=== PATIENT | male | born 1935 | race Caucasian/White ===

== ENCOUNTER 2019-05-17 12:28 | Inpatient (IN) | payer MEDICARE, BC ==
[2019-05-17] MEDS ORDERED: Baclofen 10 MG Tab PO ONE (12:52)
[2019-05-17] MEDS ORDERED: Ketorolac 60 MG/2 ML SDV IM ONE (12:53)
[2019-05-17] MEDS ORDERED: Acetaminophen/oxyCODONE 325-5 MG Tab PO ONE (12:53)
[2019-05-17] MEDS ORDERED: Albuterol/Ipratropium 3.0-0.5 MG/3 ML Neb Soln NEB ONE (13:08)
--- NOTE | 2019-05-17 13:08 | EDM.PDOC ---
ED HPI GENERAL MEDICAL PROBLEM - General Chief Complaint: Respiratory Problem Stated Complaint: HEART ISSUES [facility] Time Seen by Provider: 05/17/19 13:05 Source of Information: Reports: Patient History Limitations: Reports: No Limitations - History of Present Illness INITIAL COMMENTS - FREE TEXT/NARRATIVE: pt has had uincreased breathing difficulty for the past 2-3 days. Today his breathing was very noisy. He has not had a definite fever. He has not been coughing up sputum. He does have ankle swelling by nite time. He is a nonsmoker and quite when he was about 24. Onset: Gradual, Other (last few days. ) Duration: Hour(s): Location: Reports: Chest Associated Symptoms: Reports: Cough, Shortness of Breath right chest Pain Score (Numeric/FACES): 5 - Related Data Allergies Allergy/AdvReac Type Severity Reaction Status Date / Time No Known Allergies Allergy Verified 05/17/19 12:40 Home Meds: Home Meds Levothyroxine [Synthroid] 100 mcg PO DAILY 05/23/14 [History] Potassium Chloride [Klor-Con M20] 20 meq PO BID 05/23/14 [History] Warfarin [Coumadin] 1.25 - 2.5 mg PO DAILY 05/23/14 [History] Metoprolol Succinate 25 mg PO DAILY 05/17/19 [History] Triamcinolone Acetonide [Kenalog 0.1% Crm] 1 applic TOP TID PRN 05/17/19 [ History] Furosemide 20 mg PO DAILY 05/18/19 [History] amLODIPine Besylate [Amlodipine Besylate] 10 mg PO DAILY 05/18/19 [History] Past Medical History HEENT History: Reports: Epistaxis Cardiovascular History: Reports: Arrhythmia, High Cholesterol, Hypertension Neurological History: Reports: CVA Psychiatric History: Reports: Dementia Endocrine/Metabolic History: Reports: Hypothyroidism - Infectious Disease History Infectious Disease History: Reports: Measles Social & Family History - Tobacco Use Smoking Status *Q: Never Smoker ED ROS GENERAL - Review of Systems Review Of Systems: See Below Constitutional: Reports: No Symptoms HEENT: Reports: No Symptoms Respiratory: Reports: Shortness of Breath, Wheezing, Cough, Other (pt is not raising sputum. ) Cardiovascular: Reports: No Symptoms Endocrine: Reports: No Symptoms GI/Abdominal: Reports: No Symptoms : Reports: No Symptoms Musculoskeletal: Reports: No Symptoms Skin: Reports: No Symptoms ED EXAM, GENERAL - Physical Exam Exam: See Below Free Text/Narrative:: pt has had some increased sob for the past 3-4 days. He has alot of sweling in his ankles by the end of the day. When Ems arrived today his o2 sat was 88. His resp were 21 on arrival here and he was sating better after a neb. He has been very wheezy at times. He was very distressed today. Exam Limited By: No Limitations General Appearance: Alert, Anxious, Moderate Distress Ears: Normal TMs Nose: Normal Inspection Throat/Mouth: Normal Inspection Head: Atraumatic Neck: Normal Inspection Respiratory/Chest: Decreased Breath Sounds, Wheezing, Other ( resp rate of 21. ) Cardiovascular: Irregularly Irregular, Other (pt has a history of atrial fib. ) GI/Abdominal: Soft, Non-Tender (Male) Exam: Deferred Rectal (Males) Exam: Deferred Back Exam: Normal Inspection Extremities: Other ( trace edema present. ) Neurological: Alert, Oriented, Normal Cognition Psychiatric: Anxious Course - Vital Signs Last Recorded V/S: Last Vital Signs Temp 37.0 C 05/19/19 08:00 Pulse 63 05/19/19 08:32 Resp 18 05/19/19 08:00 BP 166/98 H 05/19/19 09:00 Pulse Ox 94 L 05/19/19 08:00 - Orders/Labs/Meds Orders: Medication Orders Acetaminophen (Tylenol) 650 mg PO Q4H PRN PRN Reason: Pain (Mild 1-3)/fever Albuterol (Proventil Neb Soln) 2.5 mg NEB Q4H PRN PRN Reason: Shortness Of Breath/wheezing Amlodipine Besylate (Norvasc) 10 mg PO DAILY [facility] Last Admin: 05/19/19 09:00 Dose: 10 mg Azithromycin (Zithromax) 500 mg PO DAILY [facility] Last Admin: 05/19/19 10:14 Dose: 500 mg Docusate Sodium (Colace) 100 mg PO BID [facility] Last Admin: 05/19/19 08:33 Dose: 100 mg Furosemide (Lasix) 20 mg PO DAILY [facility] Last Admin: 05/19/19 08:33 Dose: 20 mg Ceftriaxone Sodium 2 gm/ (Sodium Chloride) 50 mls @ 100 mls/hr IV Q24H [facility] Last Admin: 05/19/19 10:20 Dose: 100 mls/hr Levothyroxine Sodium (Synthroid) 100 mcg PO ACBREAKFAST [facility] Last Admin: 05/19/19 07:50 Dose: 100 mcg Admin: 05/18/19 09:00 Dose: 100 mcg Melatonin (Melatonin) 9 mg PO BEDTIME [facility] Last Admin: 05/18/19 20:22 Dose: 9 mg Admin: 05/17/19 20:49 Dose: 9 mg Metoprolol Succinate (Toprol Xl) 25 mg PO DAILY [facility] Last Admin: 05/19/19 08:32 Dose: 25 mg Admin: 05/18/19 09:00 Dose: 25 mg Ondansetron HCl (Zofran) 4 mg IV Q4H PRN PRN Reason: Nausea/Vomiting Oxycodone HCl (Oxycodone) 5 mg PO Q4H PRN PRN Reason: Pain (moderate 4-6) Last Admin: 05/19/19 07:53 Dose: 5 mg Admin: 05/18/19 20:22 Dose: 5 mg Polyethylene Glycol (Miralax) 17 gm PO DAILY PRN PRN Reason: Constipation Potassium Chloride (Klor-Con M20) 20 meq PO BID [facility] Last Admin: 05/19/19 08:32 Dose: 20 meq Admin: 05/18/19 20:22 Dose: 20 meq Admin: 05/18/19 09:00 Dose: 20 meq Sodium Chloride (Saline Flush) 10 ml FLUSH ASDIRECTED PRN PRN Reason: Keep Vein Open Warfarin Sodium (Coumadin) 2.5 mg PO ONETIME ONE Stop: 05/19/19 13:01 Labs: Laboratory Tests 05/17/19 05/17/19 05/17/19 Range/Units 13:03 13:03 13:03 WBC 6.3 (4.5-11.0) K/uL RBC 4.65 (4.30-5.90) M/uL Hgb 13.6 (12.0-15.0) g/dL Hct 40.1 (40.0-54.0) % MCV 86 (80-98) fL MCH 29 (27-31) pg MCHC 34 (32-36) % Plt Count 317 (150-400) K/uL Neut % (Auto) 59 (36-66) % Lymph % (Auto) 17 L (24-44) % Gilliam % (Auto) 16 H (2-6) % Eos % (Auto) 7 H (2-4) % Baso % (Auto) 1 (0-1) % PT (9.5-12.0) sec INR (0.80-1.20) Puncture Site ABG pH (7.350-7.450) ABG pCO2 (35.0-42.0) mmHg ABG pO2 (75.0-100.0) mmHg ABG HCO3 (22.0-26.0) mmol/L ABG Total CO2 (23.0-27.0) mmol/L ABG O2 Saturation (95.0-98.0) % ABG O2 Content (15.0-23.0) %vol ABG Base Excess mm/L ABG Hemoglobin (13.5-18.0) g/dL ABG Oxyhemoglobin % ABG Carboxyhemoglobin (0.0-1.6) % ABG Methemoglobin % Ochoa Test O2 Delivery Device Sodium 131 L (140-148) mmol/L Potassium 3.4 L (3.6-5.2) mmol/L Chloride 93 L (100-108) mmol/L Carbon Dioxide 23 (21-32) mmol/L Anion Gap 18.4 H (5.0-14.0) mmol/L BUN 12 D (7-18) mg/dL Creatinine 1.2 (0.8-1.3) mg/dL Est Cr Clr Drug Dosing 44.33 mL/min Estimated GFR (MDRD) 58 L (>60) Glucose 156 H (74-106) mg/dL Calcium 9.0 (8.5-10.1) mg/dL Total Bilirubin 0.6 D (0.2-1.0) mg/dL AST 21 (15-37) U/L ALT 24 (12-78) U/L Alkaline Phosphatase 153 H (46-116) U/L NT-Pro-B Natriuret Pep (5-450) pg/mL Total Protein 8.6 H (6.4-8.2) g/dL Albumin 3.4 (3.4-5.0) g/dL Globulin 5.2 H (2.3-3.5) g/dL Albumin/Globulin Ratio 0.7 L (1.2-2.2) TSH, Ultra Sensitive (0.358-3.740) uIU/mL Urine Color Yellow (YELLOW) Urine Appearance Slightly cloudy A (CLEAR) Urine pH 7.0 (5.0-8.0) Ur Specific [place] 1.020 (1.008-1.030) Urine Protein >=300 H (NEGATIVE) mg/dL Urine Glucose (UA) Negative (NEGATIVE) mg/dL Urine Ketones Negative (NEGATIVE) mg/dL Urine Occult Blood Trace-lysed H (NEGATIVE) Urine Nitrite Negative (NEGATIVE) Urine Bilirubin Negative (NEGATIVE) Urine Urobilinogen 0.2 (0.2-1.0) EU/dL Ur Leukocyte Esterase Small H (NEGATIVE) Urine RBC Not seen (0-5) Urine WBC 5-10 H (0-5) Ur Epithelial Cells Not seen Amorphous Sediment Moderate Urine Bacteria Not seen Urine Mucus Not seen 05/17/19 05/17/19 05/17/19 Range/Units 13:04 13:05 14:03 WBC (4.5-11.0) K/uL RBC (4.30-5.90) M/uL Hgb (12.0-15.0) g/dL Hct (40.0-54.0) % MCV (80-98) fL MCH (27-31) pg MCHC (32-36) % Plt Count (150-400) K/uL Neut % (Auto) (36-66) % Lymph % (Auto) (24-44) % Gilliam % (Auto) (2-6) % Eos % (Auto) (2-4) % Baso % (Auto) (0-1) % PT 44.8 H (9.5-12.0) sec INR 4.52 H* (0.80-1.20) Puncture Site Rt brachial ABG pH 7.467 H (7.350-7.450) ABG pCO2 34.5 L (35.0-42.0) mmHg ABG pO2 66.3 L (75.0-100.0) mmHg ABG HCO3 24.6 (22.0-26.0) mmol/L ABG Total CO2 21.4 L (23.0-27.0) mmol/L ABG O2 Saturation 94.0 L (95.0-98.0) % ABG O2 Content 18.0 (15.0-23.0) %vol ABG Base Excess 1.7 mm/L ABG Hemoglobin 13.9 (13.5-18.0) g/dL ABG Oxyhemoglobin 91.8 % ABG Carboxyhemoglobin 1.8 H (0.0-1.6) % ABG Methemoglobin 0.5 % Ochoa Test Not performed O2 Delivery Device Room air Sodium (140-148) mmol/L Potassium (3.6-5.2) mmol/L Chloride (100-108) mmol/L Carbon Dioxide (21-32) mmol/L Anion Gap (5.0-14.0) mmol/L BUN (7-18) mg/dL Creatinine (0.8-1.3) mg/dL Est Cr Clr Drug Dosing mL/min Estimated GFR (MDRD) (>60) Glucose (74-106) mg/dL Calcium (8.5-10.1) mg/dL Total Bilirubin (0.2-1.0) mg/dL AST (15-37) U/L ALT (12-78) U/L Alkaline Phosphatase (46-116) U/L NT-Pro-B Natriuret Pep 1609 H (5-450) pg/mL Total Protein (6.4-8.2) g/dL Albumin (3.4-5.0) g/dL Globulin (2.3-3.5) g/dL Albumin/Globulin Ratio (1.2-2.2) TSH, Ultra Sensitive (0.358-3.740) uIU/mL Urine Color (YELLOW) Urine Appearance (CLEAR) Urine pH (5.0-8.0) Ur Specific [place] (1.008-1.030) Urine Protein (NEGATIVE) mg/dL Urine Glucose (UA) (NEGATIVE) mg/dL Urine Ketones (NEGATIVE) mg/dL Urine Occult Blood (NEGATIVE) Urine Nitrite (NEGATIVE) Urine Bilirubin (NEGATIVE) Urine Urobilinogen (0.2-1.0) EU/dL Ur Leukocyte Esterase (NEGATIVE) Urine RBC (0-5) Urine WBC (0-5) Ur Epithelial Cells Amorphous Sediment Urine Bacteria Urine Mucus 05/17/19 Range/Units 14:09 WBC (4.5-11.0) K/uL RBC (4.30-5.90) M/uL Hgb (12.0-15.0) g/dL Hct (40.0-54.0) % MCV (80-98) fL MCH (27-31) pg MCHC (32-36) % Plt Count (150-400) K/uL Neut % (Auto) (36-66) % Lymph % (Auto) (24-44) % Gilliam % (Auto) (2-6) % Eos % (Auto) (2-4) % Baso % (Auto) (0-1) % PT (9.5-12.0) sec INR (0.80-1.20) Puncture Site ABG pH (7.350-7.450) ABG pCO2 (35.0-42.0) mmHg ABG pO2 (75.0-100.0) mmHg ABG HCO3 (22.0-26.0) mmol/L ABG Total CO2 (23.0-27.0) mmol/L ABG O2 Saturation (95.0-98.0) % ABG O2 Content (15.0-23.0) %vol ABG Base Excess mm/L ABG Hemoglobin (13.5-18.0) g/dL ABG Oxyhemoglobin % ABG Carboxyhemoglobin (0.0-1.6) % ABG Methemoglobin % Ochoa Test O2 Delivery Device Sodium (140-148) mmol/L Potassium (3.6-5.2) mmol/L Chloride (100-108) mmol/L Carbon Dioxide (21-32) mmol/L Anion Gap (5.0-14.0) mmol/L BUN (7-18) mg/dL Creatinine (0.8-1.3) mg/dL Est Cr Clr Drug Dosing mL/min Estimated GFR (MDRD) (>60) Glucose (74-106) mg/dL Calcium (8.5-10.1) mg/dL Total Bilirubin (0.2-1.0) mg/dL AST (15-37) U/L ALT (12-78) U/L Alkaline Phosphatase (46-116) U/L NT-Pro-B Natriuret Pep (5-450) pg/mL Total Protein (6.4-8.2) g/dL Albumin (3.4-5.0) g/dL Globulin (2.3-3.5) g/dL Albumin/Globulin Ratio (1.2-2.2) TSH, Ultra Sensitive 3.243 (0.358-3.740) uIU/mL Urine Color (YELLOW) Urine Appearance (CLEAR) Urine pH (5.0-8.0) Ur Specific [place] (1.008-1.030) Urine Protein (NEGATIVE) mg/dL Urine Glucose (UA) (NEGATIVE) mg/dL Urine Ketones (NEGATIVE) mg/dL Urine Occult Blood (NEGATIVE) Urine Nitrite (NEGATIVE) Urine Bilirubin (NEGATIVE) Urine Urobilinogen (0.2-1.0) EU/dL Ur Leukocyte Esterase (NEGATIVE) Urine RBC (0-5) Urine WBC (0-5) Ur Epithelial Cells Amorphous Sediment Urine Bacteria Urine Mucus Meds: Medications Generic Name Dose Route Start Last Admin Trade Name Freq PRN Reason Stop Dose Admin Acetaminophen 650 mg 05/17/19 16:45 Tylenol PO Q4H PRN Pain (Mild 1-3)/fever Albuterol 2.5 mg 05/17/19 16:45 Proventil Neb Soln NEB Q4H PRN Shortness Of Breath/wheezing Amlodipine Besylate 10 mg 05/19/19 09:00 05/19/19 09:00 Norvasc PO 10 mg DAILY MARIA EUGENIA Administration Azithromycin 500 mg 05/19/19 09:30 05/19/19 10:14 Zithromax PO 500 mg DAILY MARIA EUGENIA Administration Docusate Sodium 100 mg 05/19/19 09:00 05/19/19 08:33 Colace PO 100 mg BID MARIA EUGENIA Administration Furosemide 20 mg 05/19/19 09:00 05/19/19 08:33 Lasix PO 20 mg DAILY MARIA EUGENIA Administration Ceftriaxone Sodium 2 gm/ 50 mls @ 100 mls/hr 05/19/19 10:00 05/19/19 10:20 Sodium Chloride IV 100 mls/hr Q24H MARIA EUGENIA Administration Levothyroxine Sodium 100 mcg 05/18/19 07:30 05/19/19 07:50 Synthroid PO 100 mcg ACBREAKFAST MARIA EUGENIA Administration Melatonin 9 mg 05/17/19 21:00 05/18/19 20:22 Melatonin PO 9 mg BEDTIME MARIA EUGENIA Administration Metoprolol Succinate 25 mg 05/18/19 09:00 05/19/19 08:32 Toprol Xl PO 25 mg DAILY MARIA EUGENIA Administration Ondansetron HCl 4 mg 05/17/19 16:45 Zofran IV Q4H PRN Nausea/Vomiting Oxycodone HCl 5 mg 05/17/19 16:45 05/19/19 07:53 Oxycodone PO 5 mg Q4H PRN Administration Pain (moderate 4-6) Polyethylene Glycol 17 gm 05/17/19 16:45 Miralax PO DAILY PRN Constipation Potassium Chloride 20 meq 05/18/19 09:00 05/19/19 08:32 Klor-Con M20 PO 20 meq BID MARIA EUGENIA Administration Sodium Chloride 10 ml 05/17/19 16:45 Saline Flush FLUSH ASDIRECTED PRN Keep Vein Open Warfarin Sodium 2.5 mg 05/19/19 13:00 Coumadin PO 05/19/19 13:01 ONETIME ONE Discontinued Medications Generic Name Dose Route Start Last Admin Trade Name Freq PRN Reason Stop Dose Admin Albuterol/Ipratropium 3 ml 05/17/19 13:08 05/17/19 13:36 Duoneb 3.0-0.5 Mg/3 Ml NEB 05/17/19 13:09 3 ml ONETIME ONE Administration Amlodipine Besylate 5 mg 05/18/19 09:00 05/18/19 09:00 Norvasc PO 5 mg DAILY MARIA EUGENIA Administration Baclofen 10 mg 05/17/19 12:52 Lioresal PO 05/17/19 12:53 ONETIME ONE Bupivacaine HCl Confirm 05/18/19 06:39 05/18/19 08:02 Marcaine 0.5% Administered 05/18/19 06:40 5 ml Dose Administration 50 ml .ROUTE .STK-MED ONE Fentanyl Confirm 05/18/19 07:17 Sublimaze Administered 05/18/19 07:18 Dose 100 mcg .ROUTE .STK-MED ONE Furosemide 60 mg 05/17/19 13:51 05/17/19 14:03 Lasix IVPUSH 05/17/19 13:52 60 mg ONETIME ONE Administration Furosemide 40 mg 05/18/19 09:00 05/18/19 09:01 Lasix PO 40 mg DAILY MARIA EUGENIA Administration Phytonadione 1 mg/ Sodium 50.5 mls @ 100 mls/hr 05/17/19 15:30 05/17/19 16:06 Chloride IV 05/17/19 16:00 100 mls/hr ONETIME ONE Administration Sodium Chloride 1,000 mls @ 100 mls/hr 05/17/19 16:45 05/18/19 10:44 Normal Saline IV 100 mls/hr ASDIRECTED MARIA EUGENIA Administration Ketorolac Tromethamine 60 mg 05/17/19 12:53 Toradol IM 05/17/19 12:54 ONETIME ONE Lidocaine/Epinephrine Confirm 05/18/19 06:39 05/18/19 08:02 Xylocaine 1% With Epinephrine 1:100,000 Administered 05/18/19 06:40 5 ml Dose Administration 50 ml .ROUTE .STK-MED ONE Lisinopril 5 mg 05/18/19 09:00 05/18/19 09:00 Prinivil PO 5 mg DAILY MARIA EUGENIA Administration Midazolam HCl Confirm 05/18/19 07:17 Versed 1 Mg/Ml Administered 05/18/19 07:18 Dose 2 mg .ROUTE .STK-MED ONE Oxycodone/Acetaminophen 1 tab 05/17/19 12:53 Percocet 325-5 Mg PO 05/17/19 12:54 ONETIME ONE Potassium Chloride 40 meq 05/17/19 21:00 05/17/19 20:48 Klor-Con M20 PO 05/17/19 21:01 40 meq ONETIME ONE Administration Potassium Chloride 40 meq 05/17/19 16:45 05/17/19 17:24 Klor-Con M20 PO 05/17/19 16:46 40 meq ONETIME ONE Administration Potassium Chloride 40 meq 05/17/19 21:00 05/17/19 20:31 Klor-Con M20 PO 05/17/19 21:01 Not Given ONETIME ONE Potassium Chloride 40 meq 05/19/19 09:30 05/19/19 10:17 Klor-Con M20 PO 05/19/19 09:31 40 meq ONETIME ONE Administration Propofol Confirm 05/18/19 07:17 Diprivan 20 Ml Administered 05/18/19 07:18 Dose 200 mg .ROUTE .STK-MED ONE - Re-Assessments/Exams Free Text/Narrative Re-Assessment/Exam: 05/17/19 14:09 bnp is elevated, chest xray looks quite wet, there are no effusions. 05/19/19 10:46 In looking closer at the chest xray there was a possibility of a pneumothorax. A cat scan of the chest showed a 30 % pneumothorax presnt. The pt was stable. His Inr is greater than 4. 05/19/19 10:52 Dr Beltrán was contacted. With the pt stable and his INR greater than 4 he choose to do the chest tube the next day. Departure - Departure Time of Disposition: 14:10 Disposition: Admitted As Inpatient 65 Condition: Fair Clinical Impression: CHF (congestive heart failure), Atrial fibrillation, Pneumothorax on right - Discharge Information Sepsis Event Note - Evaluation Sepsis Screening Result: No Definite Risk - Focused Exam Date Exam was Performed: 05/19/19 Time Exam was Performed: 10:54
[2019-05-17] MEDS ORDERED: Furosemide 40 MG/4 ML VIAL IVPUSH ONE (13:51)
--- NOTE | 2019-05-17 15:24 | PCM.HP.2 ---
H&P History of Present Illness - General Date of Service: 05/17/19 Admit Problem/Dx: Admission Diagnosis/Problem Admission Diagnosis/Problem Pneumothorax on right Source of Information: Patient, Provider, RN Notes Reviewed History Limitations: Reports: Altered Mental Status (Dementia) - History of Present Illness Initial Comments - Free Text/Narative: Mr. Hernandez is an 83-year-old gentleman who was admitted through the emergency department with shortness of breath secondary to pneumothorax of the right lung. He does have a history of underlying dementia and is somewhat unclear concerning recent symptoms, duration of symptoms, review of systems. He thinks that symptoms came on 2 days ago but is unable to recall if they started abruptly and currently denies any symptoms of chest pain or pressure. Not think he has had fevers, chills, sweats, or cough. White blood cell count is within normal range. Chest x-ray shows evidence of a right pneumothorax. CT scan of the chest was obtained and also documents right lung pneumothorax, 30 to 40%. He is on long-term oral anticoagulation with warfarin, INR is elevated at 4.5. - Related Data Allergies/Adverse Reactions: Allergies Allergy/AdvReac Type Severity Reaction Status Date / Time No Known Allergies Allergy Verified 05/17/19 12:40 Home Medications: Home Meds Furosemide [Lasix] 40 mg PO DAILY 05/23/14 [History] Levothyroxine [Synthroid] 100 mcg PO DAILY 05/23/14 [History] Lisinopril 5 mg PO DAILY 05/23/14 [History] Potassium Chloride [Klor-Con M20] 20 meq PO BID 05/23/14 [History] Warfarin [Coumadin] 1.25 - 2.5 mg PO DAILY 05/23/14 [History] amLODIPine [Norvasc] 5 mg PO DAILY 05/23/14 [History] Metoprolol Succinate 1 tab PO DAILY 05/17/19 [History] Triamcinolone Acetonide [Kenalog 0.1% Crm] 1 applic TOP TID PRN 05/17/19 [ History] Past Medical History HEENT History: Reports: Epistaxis Cardiovascular History: Reports: Arrhythmia, High Cholesterol, Hypertension Neurological History: Reports: CVA Psychiatric History: Reports: Dementia Endocrine/Metabolic History: Reports: Hypothyroidism - Infectious Disease History Infectious Disease History: Reports: Measles Social & Family History - Tobacco Use Smoking Status *Q: Never Smoker H&P Review of Systems - Review of Systems: Review Of Systems: See Below General: Reports: No Symptoms HEENT: Reports: No Symptoms Pulmonary: Reports: Shortness of Breath. Denies: Wheezing, Pleuritic Chest Pain , Cough, Sputum, Hemoptysis Cardiovascular: Reports: Dyspnea on Exertion, Edema. Denies: Chest Pain, Palpitations, Orthopnea, PND, Lightheadedness Gastrointestinal: Reports: No Symptoms Genitourinary: Reports: No Symptoms Musculoskeletal: Reports: No Symptoms Skin: Reports: No Symptoms Psychiatric: Reports: No Symptoms Neurological: Reports: No Symptoms Hematologic/Lymphatic: Reports: No Symptoms Immunologic: Reports: No Symptoms Exam - Exam Exam: See Below - Vital Signs Vital Signs: Last Vital Signs Temp 95.6 F L 05/17/19 12:49 Pulse 81 05/17/19 14:50 Resp 21 H 05/17/19 12:37 BP 177/72 H 05/17/19 14:50 Pulse Ox 99 05/17/19 14:50 Weight: 161 lb - Exam Quality Assessment: DVT Prophylaxis General: Alert, Cooperative, Mild Distress. No: Oriented HEENT: Conjunctiva Clear, Mucosa Moist & [place], Normal Nasal Septum, Posterior Pharynx Clear, Pupils Equal. No: Hearing Intact Neck: Supple, Trachea Midline, +2 Carotid Pulse wo Bruit Lungs: Decreased Breath Sounds (Right lung field). No: Crackles, Rales, Rhonchi , Rub, Wheezing Cardiovascular: Regular Rate, Regular Rhythm, Normal S1, Normal S2. No: Systolic Murmur, Diastolic Murmur GI/Abdominal Exam: Soft, Non-Tender, No Organomegaly, No Distention Back Exam: Normal Inspection, Full Range of Motion Extremities: Non-Tender, Pedal Edema Skin: Warm, Dry, Intact Neurological: Cranial Nerves Intact, Strength Equal Bilateral, Normal Speech, Normal Tone, Sensation Intact. No: Focal Deficit Neuro Extensive - Mental Status: Alert, Oriented x3, Normal Mood/Affect, Normal Cognition, Memory Intact - Patient Data Lab Results Last 24 hrs: Laboratory Results - last 24 hr 05/17/19 05/17/19 05/17/19 Range/Units 13:03 13:03 13:03 WBC 6.3 (4.5-11.0) K/uL RBC 4.65 (4.30-5.90) M/uL Hgb 13.6 (12.0-15.0) g/dL Hct 40.1 (40.0-54.0) % MCV 86 (80-98) fL MCH 29 (27-31) pg MCHC 34 (32-36) % Plt Count 317 (150-400) K/uL Neut % (Auto) 59 (36-66) % Lymph % (Auto) 17 L (24-44) % [place] % (Auto) 16 H (2-6) % Eos % (Auto) 7 H (2-4) % Baso % (Auto) 1 (0-1) % PT (9.5-12.0) sec INR (0.80-1.20) Puncture Site ABG pH (7.350-7.450) ABG pCO2 (35.0-42.0) mmHg ABG pO2 (75.0-100.0) mmHg ABG HCO3 (22.0-26.0) mmol/L ABG Total CO2 (23.0-27.0) mmol/L ABG O2 Saturation (95.0-98.0) % ABG O2 Content (15.0-23.0) %vol ABG Base Excess mm/L ABG Hemoglobin (13.5-18.0) g/dL ABG Oxyhemoglobin % ABG Carboxyhemoglobin (0.0-1.6) % ABG Methemoglobin % Ochoa Test O2 Delivery Device Sodium 131 L (140-148) mmol/L Potassium 3.4 L (3.6-5.2) mmol/L Chloride 93 L (100-108) mmol/L Carbon Dioxide 23 (21-32) mmol/L Anion Gap 18.4 H (5.0-14.0) mmol/L BUN 12 D (7-18) mg/dL Creatinine 1.2 (0.8-1.3) mg/dL Est Cr Clr Drug Dosing 44.33 mL/min Estimated GFR (MDRD) 58 L (>60) Glucose 156 H (74-106) mg/dL Calcium 9.0 (8.5-10.1) mg/dL Total Bilirubin 0.6 D (0.2-1.0) mg/dL AST 21 (15-37) U/L ALT 24 (12-78) U/L Alkaline Phosphatase 153 H (46-116) U/L NT-Pro-B Natriuret Pep (5-450) pg/mL Total Protein 8.6 H (6.4-8.2) g/dL Albumin 3.4 (3.4-5.0) g/dL Globulin 5.2 H (2.3-3.5) g/dL Albumin/Globulin Ratio 0.7 L (1.2-2.2) TSH, Ultra Sensitive (0.358-3.740) uIU/mL Urine Color Yellow (YELLOW) Urine Appearance Slightly cloudy A (CLEAR) Urine pH 7.0 (5.0-8.0) Ur Specific [place] 1.020 (1.008-1.030) Urine Protein >=300 H (NEGATIVE) mg/dL Urine Glucose (UA) Negative (NEGATIVE) mg/dL Urine Ketones Negative (NEGATIVE) mg/dL Urine Occult Blood Trace-lysed H (NEGATIVE) Urine Nitrite Negative (NEGATIVE) Urine Bilirubin Negative (NEGATIVE) Urine Urobilinogen 0.2 (0.2-1.0) EU/dL Ur Leukocyte Esterase Small H (NEGATIVE) Urine RBC Not seen (0-5) Urine WBC 5-10 H (0-5) Ur Epithelial Cells Not seen Amorphous Sediment Moderate Urine Bacteria Not seen Urine Mucus Not seen 05/17/19 05/17/19 05/17/19 Range/Units 13:04 13:05 14:03 WBC (4.5-11.0) K/uL RBC (4.30-5.90) M/uL Hgb (12.0-15.0) g/dL Hct (40.0-54.0) % MCV (80-98) fL MCH (27-31) pg MCHC (32-36) % Plt Count (150-400) K/uL Neut % (Auto) (36-66) % Lymph % (Auto) (24-44) % [place] % (Auto) (2-6) % Eos % (Auto) (2-4) % Baso % (Auto) (0-1) % PT 44.8 H (9.5-12.0) sec INR 4.52 H* (0.80-1.20) Puncture Site Rt brachial ABG pH 7.467 H (7.350-7.450) ABG pCO2 34.5 L (35.0-42.0) mmHg ABG pO2 66.3 L (75.0-100.0) mmHg ABG HCO3 24.6 (22.0-26.0) mmol/L ABG Total CO2 21.4 L (23.0-27.0) mmol/L ABG O2 Saturation 94.0 L (95.0-98.0) % ABG O2 Content 18.0 (15.0-23.0) %vol ABG Base Excess 1.7 mm/L ABG Hemoglobin 13.9 (13.5-18.0) g/dL ABG Oxyhemoglobin 91.8 % ABG Carboxyhemoglobin 1.8 H (0.0-1.6) % ABG Methemoglobin 0.5 % Ochoa Test Not performed O2 Delivery Device Room air Sodium (140-148) mmol/L Potassium (3.6-5.2) mmol/L Chloride (100-108) mmol/L Carbon Dioxide (21-32) mmol/L Anion Gap (5.0-14.0) mmol/L BUN (7-18) mg/dL Creatinine (0.8-1.3) mg/dL Est Cr Clr Drug Dosing mL/min Estimated GFR (MDRD) (>60) Glucose (74-106) mg/dL Calcium (8.5-10.1) mg/dL Total Bilirubin (0.2-1.0) mg/dL AST (15-37) U/L ALT (12-78) U/L Alkaline Phosphatase (46-116) U/L NT-Pro-B Natriuret Pep 1609 H (5-450) pg/mL Total Protein (6.4-8.2) g/dL Albumin (3.4-5.0) g/dL Globulin (2.3-3.5) g/dL Albumin/Globulin Ratio (1.2-2.2) TSH, Ultra Sensitive (0.358-3.740) uIU/mL Urine Color (YELLOW) Urine Appearance (CLEAR) Urine pH (5.0-8.0) Ur Specific [place] (1.008-1.030) Urine Protein (NEGATIVE) mg/dL Urine Glucose (UA) (NEGATIVE) mg/dL Urine Ketones (NEGATIVE) mg/dL Urine Occult Blood (NEGATIVE) Urine Nitrite (NEGATIVE) Urine Bilirubin (NEGATIVE) Urine Urobilinogen (0.2-1.0) EU/dL Ur Leukocyte Esterase (NEGATIVE) Urine RBC (0-5) Urine WBC (0-5) Ur Epithelial Cells Amorphous Sediment Urine Bacteria Urine Mucus 05/17/19 Range/Units 14:09 WBC (4.5-11.0) K/uL RBC (4.30-5.90) M/uL Hgb (12.0-15.0) g/dL Hct (40.0-54.0) % MCV (80-98) fL MCH (27-31) pg MCHC (32-36) % Plt Count (150-400) K/uL Neut % (Auto) (36-66) % Lymph % (Auto) (24-44) % [place] % (Auto) (2-6) % Eos % (Auto) (2-4) % Baso % (Auto) (0-1) % PT (9.5-12.0) sec INR (0.80-1.20) Puncture Site ABG pH (7.350-7.450) ABG pCO2 (35.0-42.0) mmHg ABG pO2 (75.0-100.0) mmHg ABG HCO3 (22.0-26.0) mmol/L ABG Total CO2 (23.0-27.0) mmol/L ABG O2 Saturation (95.0-98.0) % ABG O2 Content (15.0-23.0) %vol ABG Base Excess mm/L ABG Hemoglobin (13.5-18.0) g/dL ABG Oxyhemoglobin % ABG Carboxyhemoglobin (0.0-1.6) % ABG Methemoglobin % Ochoa Test O2 Delivery Device Sodium (140-148) mmol/L Potassium (3.6-5.2) mmol/L Chloride (100-108) mmol/L Carbon Dioxide (21-32) mmol/L Anion Gap (5.0-14.0) mmol/L BUN (7-18) mg/dL Creatinine (0.8-1.3) mg/dL Est Cr Clr Drug Dosing mL/min Estimated GFR (MDRD) (>60) Glucose (74-106) mg/dL Calcium (8.5-10.1) mg/dL Total Bilirubin (0.2-1.0) mg/dL AST (15-37) U/L ALT (12-78) U/L Alkaline Phosphatase (46-116) U/L NT-Pro-B Natriuret Pep (5-450) pg/mL Total Protein (6.4-8.2) g/dL Albumin (3.4-5.0) g/dL Globulin (2.3-3.5) g/dL Albumin/Globulin Ratio (1.2-2.2) TSH, Ultra Sensitive 3.243 (0.358-3.740) uIU/mL Urine Color (YELLOW) Urine Appearance (CLEAR) Urine pH (5.0-8.0) Ur Specific [place] (1.008-1.030) Urine Protein (NEGATIVE) mg/dL Urine Glucose (UA) (NEGATIVE) mg/dL Urine Ketones (NEGATIVE) mg/dL Urine Occult Blood (NEGATIVE) Urine Nitrite (NEGATIVE) Urine Bilirubin (NEGATIVE) Urine Urobilinogen (0.2-1.0) EU/dL Ur Leukocyte Esterase (NEGATIVE) Urine RBC (0-5) Urine WBC (0-5) Ur Epithelial Cells Amorphous Sediment Urine Bacteria Urine Mucus Result Diagrams: 05/17/19 13:03 05/17/19 13:03 Sepsis Event Note - Evaluation Sepsis Screening Result: No Definite Risk - Focused Exam Vital Signs: Vital Signs Temp Pulse Pulse Resp BP BP Pulse Ox 05/17/19 14:50 81 177/72 H 99 05/17/19 13:36 70 05/17/19 12:49 95.6 F L 79 163/79 H 05/17/19 12:37 96.0 F L 79 21 H 151/83 H 95 Pulse Ox 05/17/19 14:50 05/17/19 13:36 97 05/17/19 12:49 05/17/19 12:37 Date Exam was Performed: 05/17/19 Time Exam was Performed: 16:10 *Q Meaningful Use (ADM) - VTE *Q VTE Pharmacological Contraindications *Q: High INR Value - VTE Risk Assess *Q Each Risk Factor Represents 1 Point: Swollen Legs, Current Total Score 1 Point Risk Factors: 1 Each Risk Factor Represents 2 Points: None Total Score 2 Point Risk Factors: 0 Each Risk Factor Represents 3 Points: Age 75 Years or Greater Total Score 3 Point Risk Factors: 3 Each Risk Factor Represents 5 Points: None Total Score 5 Point Risk Factors: 0 Venous Thromboembolism Risk Factor Score *Q: 4 Problem List Initiated/Reviewed/Updated: Yes Orders Last 24hrs: Active Orders 24 hr Category Date Time Status Patient Status Manage Transfer [TRANSFER] Routine ADT 05/17/19 15:04 Active EKG Documentation Completion [RC] ASDIRECTED Care 05/17/19 14:01 Active RT Aerosol Therapy [RC] ASDIRECTED Care 05/17/19 13:08 Active Chest 1V Frontal [CR] Stat Exams 05/17/19 13:04 Taken Chest wo Cont [CT] Stat Exams 05/17/19 14:49 Ordered Phytonadione [AquaMephyton] 1 mg Med 05/17/19 15:18 Ordered Sodium Chloride 0.9% [Normal Saline] 50 ml IV ONETIME Resuscitation Status Routine Resus Stat 05/17/19 15:08 Ordered EKG 12 Lead [EK] Routine Ther 05/17/19 14:01 Ordered Medication Orders Phytonadione 1 mg/ Sodium (Chloride) 50.5 mls @ 100 mls/hr IV ONETIME ONE Stop: 05/17/19 15:48 Assessment/Plan Comment:: ASSESSMENT AND PLAN RIGHT PNEUMOTHORAX-apparently a spontaneous pneumothorax, no history of trauma. Documented on chest x-ray as well as CT scan. No history of significant underlying lung disease, denies previous diagnosis of COPD. Currently is hemodynamically stable as well as stable from a respiratory standpoint. Oxygen saturations are adequate on room air. Dr. Beltrán has been contacted and he is concerned about the elevated INR. Vitamin K will be given and he will be monitored in the ICU overnight with plan for chest tube placement in a.m. if he remains stable. -Monitor in ICU -Daily chest x-rays -Supplemental oxygen if needed -Reverse anticoagulation with IV vitamin K -Consult Dr. Beltrán, plan for chest tube in the a.m. ELEVATED INR-on long-term oral anticoagulation with warfarin -Hold warfarin -Vitamin K 1 mg IV now -Recheck INR in a.m. HYPERTENSION -Continue outpatient medications DEMENTIA-history of cognitive impairment which is also apparent on evaluation -Melatonin 9 mg p.o. nightly MAINTENANCE ISSUES -DVT prophylaxis; current therapy with warfarin should provide adequate DVT prophylaxis -GI prophylaxis; not indicated -Powers catheter; not indicated -Nutrition; 2 g sodium diet -Nicotine dependence; not required CODE STATUS-FULL CODE ADMISSION STATUS-patient will be admitted to inpatient status, expect at least a 2 night hospital stay for evaluation and management of problems as outlined above. At the time of this admission I do not reasonably expected evaluation and management of this problem will require more than a 96 hour hospital stay. DISPOSITION-anticipate discharge to home after the hospital stay. PRIMARY CARE PROVIDER-Logan Odonnell - Mortality Measure Prognosis:: Good
[2019-05-17] MEDS ORDERED: Phytonadione 1 MG in Sodium Chloride 0.9% 50 ML IV ONE (15:30)
--- NOTE | 2019-05-17 16:31 | CRLCT ---
Indication: Possible small pneumothorax. Technique: Multiple contiguous axial images were obtained from the thoracic inlet through the upper abdomen without intravenous contrast enhancement. Please note that all CT scans at this facility use dose modulation, iterative reconstruction, and/or weight-based dosing when appropriate to reduce radiation dose to as low as reasonably achievable. Comparison: Chest x-ray from earlier today. Findings: Vascular calcifications are identified. [place] mediastinal lymph nodes are identified. The aorta is normal in caliber. Coronary artery calcifications are identified. The heart is borderline in size. No pericardial effusions identified. Small hiatal hernia is identified. The unenhanced visualized portions of the spleen, pancreas, gallbladder, adrenals, and kidneys are grossly normal. Degenerative changes of the spine are identified. No lytic or blastic lesions are identified. A moderate sized right pneumothorax is identified. Patchy areas of ground-glass opacity are identified bilaterally, greatest in the left upper lobe. A small right pleural effusion is identified. A probable right lower lobe infiltrate is identified. Impression: Moderate right hydro pneumothorax. Probable right lower lobe infiltrate. Patchy ground-glass opacities identified n the left, predominantly in the upper lobe, nonspecific. Mediastinal lymphadenopathy, most likely reactive. These findings were called to Dr. Beckham at the time of this dictation Please note that all CT scans at this facility use dose modulation, iterative reconstruction, and/or weight-based dosing when appropriate to reduce radiation dose to as low as reasonably achievable. Dictated by Carolina Parikh MD @ May 17 2019 4:17PM Signed by Dr. Carolina Parikh @ May 17 2019 4:30PM
[2019-05-17] MEDS ORDERED: Sodium Chloride 0.9% 10 ML Syringe FLUSH PRN (16:45)
[2019-05-17] MEDS ORDERED: Ondansetron 4 MG/2 ML SDV IV PRN (16:45)
[2019-05-17] MEDS ORDERED: Acetaminophen 325 MG Tab PO PRN (16:45)
[2019-05-17] MEDS ORDERED: Polyethylene Glycol 3350 Powder 17 GM Packet PO PRN (16:45)
[2019-05-17] MEDS ORDERED: Albuterol 0.083% 2.5 MG/3 ML Neb Soln NEB PRN (16:45)
[2019-05-17] MEDS ORDERED: Potassium Chloride 20 MEQ Tab.ER PO ONE ×3 (16:45→21:00)
[2019-05-17] MEDS: Sodium Chloride 0.9% 1,000 ML IV SCH (18:15)
[2019-05-17] MEDS: Melatonin 3 MG Tab PO SCH (20:49)
[2019-05-18] MEDS: Sodium Chloride 0.9% 1,000 ML IV SCH ×2 (04:20→10:44)
[2019-05-18] MEDS ORDERED: Bupivacaine 0.5% 50 ML MDV ONE (06:39)
[2019-05-18] MEDS ORDERED: Lidocaine 1% with EPINEPHrine 1:100,000 50 ML MDV ONE (06:39)
[2019-05-18] MEDS ORDERED: fentaNYL 100 MCG/2 ML SDV ONE (07:17)
[2019-05-18] MEDS ORDERED: Propofol 200 MG/20 ML SDV ONE (07:17)
[2019-05-18] MEDS ORDERED: Midazolam 1 MG/ML 2 ML SDV ONE (07:17)
[2019-05-18] MEDS: Levothyroxine 100 MCG Tab PO SCH (09:00)
[2019-05-18] MEDS ORDERED: amLODIPine 5 MG Tab PO SCH (09:00)
[2019-05-18] MEDS ORDERED: Furosemide 40 MG Tab PO SCH (09:00)
[2019-05-18] MEDS ORDERED: Lisinopril 5 MG Tab PO SCH (09:00)
[2019-05-18] MEDS: Potassium Chloride 20 MEQ Tab.ER PO SCH ×2 (09:00→20:22)
[2019-05-18] MEDS: Metoprolol Succinate 25 MG Tab.ER PO SCH (09:00)
--- NOTE | 2019-05-18 09:29 | PCM.PN ---
- General Info Date of Service: 05/18/19 Subjective Update: No acute events overnight. Patient was stable and did not have a deterioration with his pneumothorax. This morning he had a right sided chest tube placed with resolution of the pneumothorax on the right side. At this time he reports no pain. He does not feel short of breath. Appetite is good this morning. There were no behavior issues overnight. No significant drainage from the chest tube so far there does not appear to be an air leak at this time. Functional Status: Reports: Pain Controlled, Tolerating Diet - Review of Systems General: Denies: Fever Cardiovascular: Denies: Chest Pain - Patient Data Vitals - Most Recent: Last Vital Signs Temp 36.7 C 05/18/19 07:56 Pulse 70 05/18/19 09:00 Resp 21 H 05/18/19 08:45 BP 151/69 H 05/18/19 09:00 Pulse Ox 96 05/18/19 08:45 Weight - Most Recent: 69.456 kg I&O - Last 24 Hours: Intake & Output 05/17/19 05/18/19 05/18/19 22:59 06:59 14:59 Intake Total 320 Output Total 1375 1375 Balance -1055 -1375 Lab Results Last 24 Hours: Laboratory Results - last 24 hr 05/17/19 05/17/19 05/17/19 Range/Units 13:03 13:03 13:03 WBC 6.3 (4.5-11.0) K/uL RBC 4.65 (4.30-5.90) M/uL Hgb 13.6 (12.0-15.0) g/dL Hct 40.1 (40.0-54.0) % MCV 86 (80-98) fL MCH 29 (27-31) pg MCHC 34 (32-36) % Plt Count 317 (150-400) K/uL Neut % (Auto) 59 (36-66) % Lymph % (Auto) 17 L (24-44) % Thurston % (Auto) 16 H (2-6) % Eos % (Auto) 7 H (2-4) % Baso % (Auto) 1 (0-1) % PT (9.5-12.0) sec INR (0.80-1.20) Puncture Site ABG pH (7.350-7.450) ABG pCO2 (35.0-42.0) mmHg ABG pO2 (75.0-100.0) mmHg ABG HCO3 (22.0-26.0) mmol/L ABG Total CO2 (23.0-27.0) mmol/L ABG O2 Saturation (95.0-98.0) % ABG O2 Content (15.0-23.0) %vol ABG Base Excess mm/L ABG Hemoglobin (13.5-18.0) g/dL ABG Oxyhemoglobin % ABG Carboxyhemoglobin (0.0-1.6) % ABG Methemoglobin % Ochoa Test O2 Delivery Device Sodium 131 L (140-148) mmol/L Potassium 3.4 L (3.6-5.2) mmol/L Chloride 93 L (100-108) mmol/L Carbon Dioxide 23 (21-32) mmol/L Anion Gap 18.4 H (5.0-14.0) mmol/L BUN 12 D (7-18) mg/dL Creatinine 1.2 (0.8-1.3) mg/dL Est Cr Clr Drug Dosing 44.33 mL/min Estimated GFR (MDRD) 58 L (>60) Glucose 156 H (74-106) mg/dL Calcium 9.0 (8.5-10.1) mg/dL Total Bilirubin 0.6 D (0.2-1.0) mg/dL AST 21 (15-37) U/L ALT 24 (12-78) U/L Alkaline Phosphatase 153 H (46-116) U/L NT-Pro-B Natriuret Pep (5-450) pg/mL Total Protein 8.6 H (6.4-8.2) g/dL Albumin 3.4 (3.4-5.0) g/dL Globulin 5.2 H (2.3-3.5) g/dL Albumin/Globulin Ratio 0.7 L (1.2-2.2) TSH, Ultra Sensitive (0.358-3.740) uIU/mL Urine Color Yellow (YELLOW) Urine Appearance Slightly cloudy A (CLEAR) Urine pH 7.0 (5.0-8.0) Ur Specific Byron 1.020 (1.008-1.030) Urine Protein >=300 H (NEGATIVE) mg/dL Urine Glucose (UA) Negative (NEGATIVE) mg/dL Urine Ketones Negative (NEGATIVE) mg/dL Urine Occult Blood Trace-lysed H (NEGATIVE) Urine Nitrite Negative (NEGATIVE) Urine Bilirubin Negative (NEGATIVE) Urine Urobilinogen 0.2 (0.2-1.0) EU/dL Ur Leukocyte Esterase Small H (NEGATIVE) Urine RBC Not seen (0-5) Urine WBC 5-10 H (0-5) Ur Epithelial Cells Not seen Amorphous Sediment Moderate Urine Bacteria Not seen Urine Mucus Not seen 05/17/19 05/17/19 05/17/19 Range/Units 13:04 13:05 14:03 WBC (4.5-11.0) K/uL RBC (4.30-5.90) M/uL Hgb (12.0-15.0) g/dL Hct (40.0-54.0) % MCV (80-98) fL MCH (27-31) pg MCHC (32-36) % Plt Count (150-400) K/uL Neut % (Auto) (36-66) % Lymph % (Auto) (24-44) % Thurston % (Auto) (2-6) % Eos % (Auto) (2-4) % Baso % (Auto) (0-1) % PT 44.8 H (9.5-12.0) sec INR 4.52 H* (0.80-1.20) Puncture Site Rt brachial ABG pH 7.467 H (7.350-7.450) ABG pCO2 34.5 L (35.0-42.0) mmHg ABG pO2 66.3 L (75.0-100.0) mmHg ABG HCO3 24.6 (22.0-26.0) mmol/L ABG Total CO2 21.4 L (23.0-27.0) mmol/L ABG O2 Saturation 94.0 L (95.0-98.0) % ABG O2 Content 18.0 (15.0-23.0) %vol ABG Base Excess 1.7 mm/L ABG Hemoglobin 13.9 (13.5-18.0) g/dL ABG Oxyhemoglobin 91.8 % ABG Carboxyhemoglobin 1.8 H (0.0-1.6) % ABG Methemoglobin 0.5 % Ochoa Test Not performed O2 Delivery Device Room air Sodium (140-148) mmol/L Potassium (3.6-5.2) mmol/L Chloride (100-108) mmol/L Carbon Dioxide (21-32) mmol/L Anion Gap (5.0-14.0) mmol/L BUN (7-18) mg/dL Creatinine (0.8-1.3) mg/dL Est Cr Clr Drug Dosing mL/min Estimated GFR (MDRD) (>60) Glucose (74-106) mg/dL Calcium (8.5-10.1) mg/dL Total Bilirubin (0.2-1.0) mg/dL AST (15-37) U/L ALT (12-78) U/L Alkaline Phosphatase (46-116) U/L NT-Pro-B Natriuret Pep 1609 H (5-450) pg/mL Total Protein (6.4-8.2) g/dL Albumin (3.4-5.0) g/dL Globulin (2.3-3.5) g/dL Albumin/Globulin Ratio (1.2-2.2) TSH, Ultra Sensitive (0.358-3.740) uIU/mL Urine Color (YELLOW) Urine Appearance (CLEAR) Urine pH (5.0-8.0) Ur Specific Byron (1.008-1.030) Urine Protein (NEGATIVE) mg/dL Urine Glucose (UA) (NEGATIVE) mg/dL Urine Ketones (NEGATIVE) mg/dL Urine Occult Blood (NEGATIVE) Urine Nitrite (NEGATIVE) Urine Bilirubin (NEGATIVE) Urine Urobilinogen (0.2-1.0) EU/dL Ur Leukocyte Esterase (NEGATIVE) Urine RBC (0-5) Urine WBC (0-5) Ur Epithelial Cells Amorphous Sediment Urine Bacteria Urine Mucus 05/17/19 05/18/19 05/18/19 Range/Units 14:09 04:41 04:41 WBC 6.6 (4.5-11.0) K/uL RBC 4.35 (4.30-5.90) M/uL Hgb 12.5 (12.0-15.0) g/dL Hct 38.2 L (40.0-54.0) % MCV 88 (80-98) fL MCH 29 (27-31) pg MCHC 33 (32-36) % Plt Count 296 (150-400) K/uL Neut % (Auto) 57 (36-66) % Lymph % (Auto) 15 L (24-44) % Thurston % (Auto) 20 H (2-6) % Eos % (Auto) 8 H (2-4) % Baso % (Auto) 1 (0-1) % PT 19.4 H (9.5-12.0) sec INR 1.86 H D (0.80-1.20) Puncture Site ABG pH (7.350-7.450) ABG pCO2 (35.0-42.0) mmHg ABG pO2 (75.0-100.0) mmHg ABG HCO3 (22.0-26.0) mmol/L ABG Total CO2 (23.0-27.0) mmol/L ABG O2 Saturation (95.0-98.0) % ABG O2 Content (15.0-23.0) %vol ABG Base Excess mm/L ABG Hemoglobin (13.5-18.0) g/dL ABG Oxyhemoglobin % ABG Carboxyhemoglobin (0.0-1.6) % ABG Methemoglobin % Ochoa Test O2 Delivery Device Sodium (140-148) mmol/L Potassium (3.6-5.2) mmol/L Chloride (100-108) mmol/L Carbon Dioxide (21-32) mmol/L Anion Gap (5.0-14.0) mmol/L BUN (7-18) mg/dL Creatinine (0.8-1.3) mg/dL Est Cr Clr Drug Dosing mL/min Estimated GFR (MDRD) (>60) Glucose (74-106) mg/dL Calcium (8.5-10.1) mg/dL Total Bilirubin (0.2-1.0) mg/dL AST (15-37) U/L ALT (12-78) U/L Alkaline Phosphatase (46-116) U/L NT-Pro-B Natriuret Pep (5-450) pg/mL Total Protein (6.4-8.2) g/dL Albumin (3.4-5.0) g/dL Globulin (2.3-3.5) g/dL Albumin/Globulin Ratio (1.2-2.2) TSH, Ultra Sensitive 3.243 (0.358-3.740) uIU/mL Urine Color (YELLOW) Urine Appearance (CLEAR) Urine pH (5.0-8.0) Ur Specific Byron (1.008-1.030) Urine Protein (NEGATIVE) mg/dL Urine Glucose (UA) (NEGATIVE) mg/dL Urine Ketones (NEGATIVE) mg/dL Urine Occult Blood (NEGATIVE) Urine Nitrite (NEGATIVE) Urine Bilirubin (NEGATIVE) Urine Urobilinogen (0.2-1.0) EU/dL Ur Leukocyte Esterase (NEGATIVE) Urine RBC (0-5) Urine WBC (0-5) Ur Epithelial Cells Amorphous Sediment Urine Bacteria Urine Mucus 05/18/19 Range/Units 04:41 WBC (4.5-11.0) K/uL RBC (4.30-5.90) M/uL Hgb (12.0-15.0) g/dL Hct (40.0-54.0) % MCV (80-98) fL MCH (27-31) pg MCHC (32-36) % Plt Count (150-400) K/uL Neut % (Auto) (36-66) % Lymph % (Auto) (24-44) % Thurston % (Auto) (2-6) % Eos % (Auto) (2-4) % Baso % (Auto) (0-1) % PT (9.5-12.0) sec INR (0.80-1.20) Puncture Site ABG pH (7.350-7.450) ABG pCO2 (35.0-42.0) mmHg ABG pO2 (75.0-100.0) mmHg ABG HCO3 (22.0-26.0) mmol/L ABG Total CO2 (23.0-27.0) mmol/L ABG O2 Saturation (95.0-98.0) % ABG O2 Content (15.0-23.0) %vol ABG Base Excess mm/L ABG Hemoglobin (13.5-18.0) g/dL ABG Oxyhemoglobin % ABG Carboxyhemoglobin (0.0-1.6) % ABG Methemoglobin % Ochoa Test O2 Delivery Device Sodium 136 L (140-148) mmol/L Potassium 3.9 (3.6-5.2) mmol/L Chloride 97 L (100-108) mmol/L Carbon Dioxide 29 (21-32) mmol/L Anion Gap 13.9 (5.0-14.0) mmol/L BUN 10 (7-18) mg/dL Creatinine 1.1 (0.8-1.3) mg/dL Est Cr Clr Drug Dosing 48.36 mL/min Estimated GFR (MDRD) > 60 (>60) Glucose 95 (74-106) mg/dL Calcium 8.3 L (8.5-10.1) mg/dL Total Bilirubin (0.2-1.0) mg/dL AST (15-37) U/L ALT (12-78) U/L Alkaline Phosphatase (46-116) U/L NT-Pro-B Natriuret Pep (5-450) pg/mL Total Protein (6.4-8.2) g/dL Albumin (3.4-5.0) g/dL Globulin (2.3-3.5) g/dL Albumin/Globulin Ratio (1.2-2.2) TSH, Ultra Sensitive (0.358-3.740) uIU/mL Urine Color (YELLOW) Urine Appearance (CLEAR) Urine pH (5.0-8.0) Ur Specific Byron (1.008-1.030) Urine Protein (NEGATIVE) mg/dL Urine Glucose (UA) (NEGATIVE) mg/dL Urine Ketones (NEGATIVE) mg/dL Urine Occult Blood (NEGATIVE) Urine Nitrite (NEGATIVE) Urine Bilirubin (NEGATIVE) Urine Urobilinogen (0.2-1.0) EU/dL Ur Leukocyte Esterase (NEGATIVE) Urine RBC (0-5) Urine WBC (0-5) Ur Epithelial Cells Amorphous Sediment Urine Bacteria Urine Mucus Med Orders - Current: Current Medications Acetaminophen (Tylenol) 650 mg PO Q4H PRN PRN Reason: Pain (Mild 1-3)/fever Albuterol (Proventil Neb Soln) 2.5 mg NEB Q4H PRN PRN Reason: Shortness Of Breath/wheezing Amlodipine Besylate (Norvasc) 5 mg PO DAILY [facility] Last Admin: 05/18/19 09:00 Dose: 5 mg Furosemide (Lasix) 40 mg PO DAILY [facility] Last Admin: 05/18/19 09:01 Dose: 40 mg Sodium Chloride (Normal Saline) 1,000 mls @ 100 mls/hr IV ASDIRECTED [facility] Last Admin: 05/18/19 04:20 Dose: 100 mls/hr Levothyroxine Sodium (Synthroid) 100 mcg PO ACBREAKFAST [facility] Last Admin: 05/18/19 09:00 Dose: 100 mcg Lisinopril (Prinivil) 5 mg PO DAILY [facility] Last Admin: 05/18/19 09:00 Dose: 5 mg Melatonin (Melatonin) 9 mg PO BEDTIME [facility] Last Admin: 05/17/19 20:49 Dose: 9 mg Metoprolol Succinate (Toprol Xl) 25 mg PO DAILY [facility] Last Admin: 05/18/19 09:00 Dose: 25 mg Ondansetron HCl (Zofran) 4 mg IV Q4H PRN PRN Reason: Nausea/Vomiting Oxycodone HCl (Oxycodone) 5 mg PO Q4H PRN PRN Reason: Pain (moderate 4-6) Polyethylene Glycol (Miralax) 17 gm PO DAILY PRN PRN Reason: Constipation Potassium Chloride (Klor-Con M20) 20 meq PO BID [facility] Last Admin: 05/18/19 09:00 Dose: 20 meq Sodium Chloride (Saline Flush) 10 ml FLUSH ASDIRECTED PRN PRN Reason: Keep Vein Open Discontinued Medications Albuterol/Ipratropium (Duoneb 3.0-0.5 Mg/3 Ml) 3 ml NEB ONETIME ONE Stop: 05/17/19 13:09 Last Admin: 05/17/19 13:36 Dose: 3 ml Baclofen (Lioresal) 10 mg PO ONETIME ONE Stop: 05/17/19 12:53 Bupivacaine HCl (Marcaine 0.5%) Confirm Administered Dose 50 ml .ROUTE .STK-MED ONE Stop: 05/18/19 06:40 Last Admin: 05/18/19 08:02 Dose: 5 ml Fentanyl (Sublimaze) Confirm Administered Dose 100 mcg .ROUTE .STK-MED ONE Stop: 05/18/19 07:18 Furosemide (Lasix) 60 mg IVPUSH ONETIME ONE Stop: 05/17/19 13:52 Last Admin: 05/17/19 14:03 Dose: 60 mg Phytonadione 1 mg/ Sodium (Chloride) 50.5 mls @ 100 mls/hr IV ONETIME ONE Stop: 05/17/19 16:00 Last Admin: 05/17/19 16:06 Dose: 100 mls/hr Ketorolac Tromethamine (Toradol) 60 mg IM ONETIME ONE Stop: 05/17/19 12:54 Lidocaine/Epinephrine (Xylocaine 1% With Epinephrine 1:100,000) Confirm Administered Dose 50 ml .ROUTE .STK-MED ONE Stop: 05/18/19 06:40 Last Admin: 05/18/19 08:02 Dose: 5 ml Midazolam HCl (Versed 1 Mg/Ml) Confirm Administered Dose 2 mg .ROUTE .STK-MED ONE Stop: 05/18/19 07:18 Oxycodone/Acetaminophen (Percocet 325-5 Mg) 1 tab PO ONETIME ONE Stop: 05/17/19 12:54 Potassium Chloride (Klor-Con M20) 40 meq PO ONETIME ONE Stop: 05/17/19 21:01 Last Admin: 05/17/19 20:48 Dose: 40 meq Potassium Chloride (Klor-Con M20) 40 meq PO ONETIME ONE Stop: 05/17/19 16:46 Last Admin: 05/17/19 17:24 Dose: 40 meq Potassium Chloride (Klor-Con M20) 40 meq PO ONETIME ONE Stop: 05/17/19 21:01 Last Admin: 05/17/19 20:31 Dose: Not Given Propofol (Diprivan 20 Ml) Confirm Administered Dose 200 mg .ROUTE .STK-MED ONE Stop: 05/18/19 07:18 - Exam Quality Assessment: Supplemental Oxygen General: Alert, Cooperative, No Acute Distress Cardiovascular: Regular Rate, Regular Rhythm GI/Abdominal Exam: Soft, No Distention Extremities: No Pedal Edema. No: Increased Warmth Skin: Warm, Dry Psy/Mental Status: Alert, Normal Affect Sepsis Event Note - Evaluation Sepsis Screening Result: No Definite Risk - Focused Exam Vital Signs: Vital Signs Temp Temp Pulse Pulse Resp BP BP 05/18/19 09:00 70 141/69 H 05/18/19 08:45 75 21 H 148/69 H 05/18/19 08:30 61 19 151/69 H 05/18/19 08:15 65 18 149/72 H 05/18/19 07:56 36.7 C 59 L 18 136/62 05/18/19 07:50 60 18 129/61 05/18/19 07:45 62 18 133/63 05/18/19 07:41 74 16 129/61 05/18/19 07:35 37.0 C 61 16 119/61 05/18/19 06:00 12 169/90 H 05/18/19 04:00 37.2 C 17 131/54 L 05/18/19 02:00 16 135/57 L 05/18/19 00:00 37.1 C 16 142/53 H 05/17/19 22:00 15 142/51 H Pulse Ox 05/18/19 09:00 05/18/19 08:45 96 05/18/19 08:30 95 05/18/19 08:15 96 05/18/19 07:56 96 05/18/19 07:50 97 05/18/19 07:45 95 05/18/19 07:41 95 05/18/19 07:35 95 05/18/19 06:00 94 L 05/18/19 04:00 95 05/18/19 02:00 94 L 05/18/19 00:00 95 05/17/19 22:00 94 L Date Exam was Performed: 05/18/19 Time Exam was Performed: 15:16 - Problem List Review Problem List Initiated/Reviewed/Updated: Yes - Plan Plan:: ASSESSMENT AND PLAN RIGHT PNEUMOTHORAX-spontaneous pneumothorax, no history of trauma. Chest tube placed this morning, currently no air leak and no significant drainage so far. Pain very well controlled at this time. -Monitor in ICU overnight -Daily chest x-rays -Surgical follow-up per Dr. Beltrán -Pain control ELEVATED INR-INR down to 1.8 this morning. We will continue to hold off on anticoagulation. -Hold warfarin -Recheck INR in a.m. HYPERTENSION-stable. -Continue outpatient medications DEMENTIA-history of cognitive impairment which is also apparent on evaluation. No behavior issues. -Melatonin 9 mg p.o. nightly MAINTENANCE ISSUES -DVT prophylaxis; mechanical until warfarin reinitiated -GI prophylaxis; not indicated -Powers catheter; not indicated -Nutrition; 2 g sodium diet DISPOSITION-anticipate discharge to home, possibly with home care after the hospital stay. Joseph Arguelles MD
[2019-05-18] MEDS: Melatonin 3 MG Tab PO SCH (20:22)
[2019-05-18] MEDS: oxyCODONE 5 MG Tab PO PRN (20:22)
[2019-05-19] MEDS: Levothyroxine 100 MCG Tab PO SCH (07:50)
[2019-05-19] MEDS: oxyCODONE 5 MG Tab PO PRN (07:53)
[2019-05-19] MEDS: Potassium Chloride 20 MEQ Tab.ER PO SCH ×2 (08:32→20:03)
[2019-05-19] MEDS: Metoprolol Succinate 25 MG Tab.ER PO SCH (08:32)
[2019-05-19] MEDS: Docusate Sodium 100 MG Cap PO SCH ×2 (08:33→20:02)
[2019-05-19] MEDS: Furosemide 20 MG Tab PO SCH (08:33)
[2019-05-19] MEDS: amLODIPine 10 MG Tab PO SCH (09:00)
--- NOTE | 2019-05-19 09:12 | CR ---
CHEST: Portable 05/19/2019 at 02:30 CLINICAL HISTORY:Pneumothorax COMPARISON:05/18 FINDINGS: There is no significant right pneumothorax. Right chest tube remains in place. There are are bilateral lower lobe infiltrates which have increased since prior study. Impression: No recurrence of pneumothorax Right chest tube remains in place Increasing bilateral lower lobe infiltrates
--- NOTE | 2019-05-19 09:17 | PCM.PN ---
- General Info Date of Service: 05/19/19 Subjective Update: There were no acute events overnight. Patient did have a few episodes of mild bradycardia while he was sleeping. He was off supplemental oxygen as of this morning but did require some after activity. He reports no pain in the right chest in the area of the chest tube. He does not feel short of breath. Appetite has been good. He has not had any fevers. He has developed a loose cough. Chest x-ray this morning does show a slight increase in the bilateral lower lung infiltrates. Functional Status: Reports: Pain Controlled, Tolerating Diet - Review of Systems General: Denies: Fever Pulmonary: Denies: Shortness of Breath Cardiovascular: Denies: Chest Pain - Patient Data Vitals - Most Recent: Last Vital Signs Temp 37.0 C 05/19/19 08:00 Pulse 63 05/19/19 08:32 Resp 18 05/19/19 08:00 BP 166/98 H 05/19/19 08:32 Pulse Ox 94 L 05/19/19 08:00 Weight - Most Recent: 70.67 kg I&O - Last 24 Hours: Intake & Output 05/18/19 05/19/19 05/19/19 22:59 06:59 14:59 Intake Total 360 Output Total 450 308 Balance -90 -308 Lab Results Last 24 Hours: Laboratory Results - last 24 hr 05/19/19 05/19/19 05/19/19 Range/Units 04:51 04:51 04:51 WBC 8.5 (4.5-11.0) K/uL RBC 4.58 (4.30-5.90) M/uL Hgb 13.2 (12.0-15.0) g/dL Hct 40.4 (40.0-54.0) % MCV 88 (80-98) fL MCH 29 (27-31) pg MCHC 33 (32-36) % Plt Count 304 (150-400) K/uL PT 15.0 H (9.5-12.0) sec INR 1.42 H (0.80-1.20) Sodium 137 L (140-148) mmol/L Potassium 3.6 (3.6-5.2) mmol/L Chloride 100 (100-108) mmol/L Carbon Dioxide 27 (21-32) mmol/L Anion Gap 13.6 (5.0-14.0) mmol/L BUN 11 (7-18) mg/dL Creatinine 1.2 (0.8-1.3) mg/dL Est Cr Clr Drug Dosing 44.50 mL/min Estimated GFR (MDRD) 58 L (>60) Glucose 93 (74-106) mg/dL Calcium 8.8 (8.5-10.1) mg/dL Phosphorus 3.2 (2.5-4.9) mg/dL Magnesium 1.6 L (1.8-2.4) mg/dL Total Bilirubin 0.8 (0.2-1.0) mg/dL AST 23 (15-37) U/L ALT 19 (12-78) U/L Alkaline Phosphatase 128 H (46-116) U/L NT-Pro-B Natriuret Pep 1932 H (5-450) pg/mL Total Protein 7.6 (6.4-8.2) g/dL Albumin 2.9 L (3.4-5.0) g/dL Globulin 4.7 H (2.3-3.5) g/dL Albumin/Globulin Ratio 0.6 L (1.2-2.2) Med Orders - Current: Current Medications Acetaminophen (Tylenol) 650 mg PO Q4H PRN PRN Reason: Pain (Mild 1-3)/fever Albuterol (Proventil Neb Soln) 2.5 mg NEB Q4H PRN PRN Reason: Shortness Of Breath/wheezing Amlodipine Besylate (Norvasc) 10 mg PO DAILY [facility] Docusate Sodium (Colace) 100 mg PO BID [facility] Last Admin: 05/19/19 08:33 Dose: 100 mg Furosemide (Lasix) 20 mg PO DAILY [facility] Last Admin: 05/19/19 08:33 Dose: 20 mg Levothyroxine Sodium (Synthroid) 100 mcg PO ACBREAKFAST [facility] Last Admin: 05/19/19 07:50 Dose: 100 mcg Melatonin (Melatonin) 9 mg PO BEDTIME [facility] Last Admin: 05/18/19 20:22 Dose: 9 mg Metoprolol Succinate (Toprol Xl) 25 mg PO DAILY [facility] Last Admin: 05/19/19 08:32 Dose: 25 mg Ondansetron HCl (Zofran) 4 mg IV Q4H PRN PRN Reason: Nausea/Vomiting Oxycodone HCl (Oxycodone) 5 mg PO Q4H PRN PRN Reason: Pain (moderate 4-6) Last Admin: 05/19/19 07:53 Dose: 5 mg Polyethylene Glycol (Miralax) 17 gm PO DAILY PRN PRN Reason: Constipation Potassium Chloride (Klor-Con M20) 20 meq PO BID [facility] Last Admin: 05/19/19 08:32 Dose: 20 meq Sodium Chloride (Saline Flush) 10 ml FLUSH ASDIRECTED PRN PRN Reason: Keep Vein Open Warfarin Sodium (Coumadin) 2.5 mg PO ONETIME ONE Stop: 05/19/19 13:01 Discontinued Medications Albuterol/Ipratropium (Duoneb 3.0-0.5 Mg/3 Ml) 3 ml NEB ONETIME ONE Stop: 05/17/19 13:09 Last Admin: 05/17/19 13:36 Dose: 3 ml Amlodipine Besylate (Norvasc) 5 mg PO DAILY [facility] Last Admin: 05/18/19 09:00 Dose: 5 mg Baclofen (Lioresal) 10 mg PO ONETIME ONE Stop: 05/17/19 12:53 Bupivacaine HCl (Marcaine 0.5%) Confirm Administered Dose 50 ml .ROUTE .STK-MED ONE Stop: 05/18/19 06:40 Last Admin: 05/18/19 08:02 Dose: 5 ml Fentanyl (Sublimaze) Confirm Administered Dose 100 mcg .ROUTE .STK-MED ONE Stop: 05/18/19 07:18 Furosemide (Lasix) 60 mg IVPUSH ONETIME ONE Stop: 05/17/19 13:52 Last Admin: 05/17/19 14:03 Dose: 60 mg Furosemide (Lasix) 40 mg PO DAILY [facility] Last Admin: 05/18/19 09:01 Dose: 40 mg Phytonadione 1 mg/ Sodium (Chloride) 50.5 mls @ 100 mls/hr IV ONETIME ONE Stop: 05/17/19 16:00 Last Admin: 05/17/19 16:06 Dose: 100 mls/hr Sodium Chloride (Normal Saline) 1,000 mls @ 100 mls/hr IV ASDIRECTED [facility] Last Admin: 05/18/19 10:44 Dose: 100 mls/hr Ketorolac Tromethamine (Toradol) 60 mg IM ONETIME ONE Stop: 05/17/19 12:54 Lidocaine/Epinephrine (Xylocaine 1% With Epinephrine 1:100,000) Confirm Administered Dose 50 ml .ROUTE .STK-MED ONE Stop: 05/18/19 06:40 Last Admin: 05/18/19 08:02 Dose: 5 ml Lisinopril (Prinivil) 5 mg PO DAILY [facility] Last Admin: 05/18/19 09:00 Dose: 5 mg Midazolam HCl (Versed 1 Mg/Ml) Confirm Administered Dose 2 mg .ROUTE .STK-MED ONE Stop: 05/18/19 07:18 Oxycodone/Acetaminophen (Percocet 325-5 Mg) 1 tab PO ONETIME ONE Stop: 05/17/19 12:54 Potassium Chloride (Klor-Con M20) 40 meq PO ONETIME ONE Stop: 05/17/19 21:01 Last Admin: 05/17/19 20:48 Dose: 40 meq Potassium Chloride (Klor-Con M20) 40 meq PO ONETIME ONE Stop: 05/17/19 16:46 Last Admin: 05/17/19 17:24 Dose: 40 meq Potassium Chloride (Klor-Con M20) 40 meq PO ONETIME ONE Stop: 05/17/19 21:01 Last Admin: 05/17/19 20:31 Dose: Not Given Propofol (Diprivan 20 Ml) Confirm Administered Dose 200 mg .ROUTE .STK-MED ONE Stop: 05/18/19 07:18 - Exam Quality Assessment: No: Supplemental Oxygen General: Alert, Cooperative, No Acute Distress Lungs: Normal Respiratory Effort, Rales (rare left midlung and rare right lower lung ). No: Rhonchi, Wheezing Cardiovascular: Regular Rate, Irregular Rhythm, Murmurs GI/Abdominal Exam: Soft, No Distention Extremities: No Pedal Edema. No: Increased Warmth Skin: Warm, Dry Psy/Mental Status: Alert, Normal Affect Sepsis Event Note - Evaluation Sepsis Screening Result: No Definite Risk - Focused Exam Vital Signs: Vital Signs Temp Temp Pulse Pulse Resp BP BP 05/19/19 08:32 63 166/98 H 05/19/19 08:00 37.0 C 62 18 05/19/19 06:00 15 143/69 H 05/19/19 04:00 36.9 C 13 136/62 05/19/19 02:00 17 128/55 L 05/19/19 00:00 37.1 C 20 122/50 L 05/18/19 22:00 18 108/43 L Pulse Ox 05/19/19 08:32 05/19/19 08:00 94 L 05/19/19 06:00 96 05/19/19 04:00 96 05/19/19 02:00 94 L 05/19/19 00:00 96 05/18/19 22:00 95 Date Exam was Performed: 05/19/19 Time Exam was Performed: 11:27 - Problem List & Annotations (1) Pneumonia SNOMED Code(s): 598732359 Code(s): J18.9 - PNEUMONIA, UNSPECIFIED ORGANISM Status: Acute Current Visit: Yes Qualifiers: Pneumonia type: due to unspecified organism Laterality: bilateral Lung location: lower lobe of lung Qualified Code(s): J18.9 - Pneumonia, unspecified organism Annotation/Comment:: Present on admission as noted on CT scan - Problem List Review Problem List Initiated/Reviewed/Updated: Yes - My Orders Last 24 Hours: My Active Orders 05/18/19 09:29 Dietary Supplements [RC] BIDMEALS 05/18/19 11:27 Convert IV to Saline Lock [OM.PC] Routine 05/19/19 09:00 Furosemide [Lasix] 20 mg PO DAILY amLODIPine [Norvasc] 10 mg PO DAILY 05/19/19 09:14 Potassium Chloride [Klor-Con M20] 40 meq PO ONETIME ONE 05/19/19 09:16 Transfer Patient (Change bed) [ADT] Routine Discontinue Telemetry Monitoring [Cardiac Monitoring Discontinue] [RC] Click to Edit 05/20/19 05:00 BASIC METABOLIC PANEL,BMP [CHEM] Timed CBC W/O DIFF,HEMOGRAM [HEME] Timed (1) - Plan Plan:: ASSESSMENT AND PLAN RIGHT PNEUMOTHORAX-possibly related to pneumonia, no history of trauma. Chest tube placed this 05/18, currently no air leak and no significant drainage so far. Pain very well controlled at this time. -Continue chest tube to suction -Daily chest x-rays -Surgical follow-up per Dr. Beltrán -Pain control BILATERAL LOWER LOBE PNEUMONIA-infiltrates were noted on the CT scan in the emergency room as well as chest x-ray yesterday and have progressed slightly today. He has a loose cough. He has not had any fevers but white blood cell count is slightly higher though still in the normal range. I suspect he had a pneumonia brewing at the time of presentation and this has become more evident over the past 2 days. -Antibiotic coverage with ceftriaxone and azithromycin -Supplement oxygen as needed ELEVATED INR-INR down to 1.4 this morning. Warfarin reinitiated today. -Restart warfarin -Recheck INR in a.m. HYPERTENSION-stable. -Continue outpatient medications DEMENTIA-No behavior issues. -Melatonin 9 mg p.o. nightly MAINTENANCE ISSUES -DVT prophylaxis; mechanical until warfarin therapeutic -GI prophylaxis; not indicated -Powers catheter; not indicated -Nutrition; 2 g sodium diet DISPOSITION-anticipate discharge to home, possibly with home care after the hospital stay. He is stable and safe for transfer out of the intensive care unit today. Joseph Arguelles MD
[2019-05-19] MEDS ORDERED: Potassium Chloride 20 MEQ Tab.ER PO ONE (09:30)
[2019-05-19] MEDS: Azithromycin 250 MG Tab PO SCH (10:14)
[2019-05-19] MEDS: cefTRIAXone 2 GM in Sodium Chloride 0.9% 50 ML IV SCH (10:20)
[2019-05-19] MEDS ORDERED: Warfarin 2.5 MG Tab PO ONE (13:00)
[2019-05-19] MEDS: Melatonin 3 MG Tab PO SCH (20:02)
[2019-05-20] MEDS: Levothyroxine 100 MCG Tab PO SCH (07:50)
[2019-05-20] MEDS: Docusate Sodium 100 MG Cap PO SCH ×2 (08:02→22:15)
[2019-05-20] MEDS: Potassium Chloride 20 MEQ Tab.ER PO SCH ×2 (08:03→21:19)
[2019-05-20] MEDS: Furosemide 20 MG Tab PO SCH (08:03)
[2019-05-20] MEDS: Metoprolol Succinate 25 MG Tab.ER PO SCH (08:04)
[2019-05-20] MEDS: amLODIPine 10 MG Tab PO SCH (08:04)
[2019-05-20] MEDS: Azithromycin 250 MG Tab PO SCH (08:05)
--- NOTE | 2019-05-20 08:56 | CR ---
CHEST: Portable 05/20/2019 at 04 31 CLINICAL HISTORY:Right pneumothorax COMPARISON:Multiple prior studies FINDINGS: Right chest tube remains in place. There is no recurrence of pneumothorax. Bilateral infiltrates have diminished. Impression: No recurrence of pneumothorax Decreasing bilateral lower lobe infiltrates CHEST: 2 view 05/20/2019 at 06 45 CLINICAL HISTORY:Pneumothorax COMPARISON:Earlier 05/20/2019 FINDINGS: Chest tube has been removed. There is no recurrence of pneumothorax. Heart is enlarged. Pulmonary vascularity is normal. There are some minimal infiltrate in both lower lung rivas left greater than right. Impression: Chest tube is been removed No recurrence of pneumothorax Minimal residual density in both lower lobes left greater than right. This has improved since 05/19/2019.
[2019-05-20] MEDS: Bisacodyl 5 MG Tab PO SCH ×2 (09:46→21:19)
--- NOTE | 2019-05-20 09:54 | PCM.PN ---
- General Info Date of Service: 05/20/19 Subjective Update: No acute issues overnight. No significant chest pain reported. Chest tube was removed this morning and follow-up chest x-ray did not show evidence for pneumothorax. No shortness of breath. Still coughing some but minimal sputum is produced. He has not had any fevers. Appetite decent. Strength slowly improving. Functional Status: Reports: Pain Controlled, Tolerating Diet - Review of Systems General: Denies: Fever Pulmonary: Reports: Shortness of Breath, Cough - Patient Data Vitals - Most Recent: Last Vital Signs Temp 37.1 C 05/20/19 06:58 Pulse 70 05/20/19 08:04 Resp 18 05/20/19 06:58 BP 148/58 H 05/20/19 08:04 Pulse Ox 96 05/20/19 08:10 Weight - Most Recent: 70.67 kg I&O - Last 24 Hours: Intake & Output 05/19/19 05/20/19 05/20/19 22:59 06:59 14:59 Intake Total 380 700 583 Output Total 655 Balance 380 45 583 Lab Results Last 24 Hours: Laboratory Results - last 24 hr 05/20/19 05/20/19 05/20/19 Range/Units 04:15 04:15 04:15 WBC 8.2 (4.5-11.0) K/uL RBC 4.23 L (4.30-5.90) M/uL Hgb 12.5 (12.0-15.0) g/dL Hct 37.2 L (40.0-54.0) % MCV 88 (80-98) fL MCH 30 (27-31) pg MCHC 34 (32-36) % Plt Count 300 (150-400) K/uL PT 19.2 H (9.5-12.0) sec INR 1.84 H (0.80-1.20) Sodium 133 L (140-148) mmol/L Potassium 4.0 (3.6-5.2) mmol/L Chloride 97 L (100-108) mmol/L Carbon Dioxide 27 (21-32) mmol/L Anion Gap 13.0 (5.0-14.0) mmol/L BUN 14 (7-18) mg/dL Creatinine 1.1 (0.8-1.3) mg/dL Est Cr Clr Drug Dosing 48.54 mL/min Estimated GFR (MDRD) > 60 (>60) Glucose 97 (74-106) mg/dL Calcium 8.8 (8.5-10.1) mg/dL Med Orders - Current: Current Medications Acetaminophen (Tylenol) 650 mg PO Q4H PRN PRN Reason: Pain (Mild 1-3)/fever Albuterol (Proventil Neb Soln) 2.5 mg NEB Q4H PRN PRN Reason: Shortness Of Breath/wheezing Amlodipine Besylate (Norvasc) 10 mg PO DAILY [facility] Last Admin: 05/20/19 08:04 Dose: 10 mg Azithromycin (Zithromax) 500 mg PO DAILY [facility] Last Admin: 05/20/19 08:05 Dose: 500 mg Bisacodyl (Dulcolax) 10 mg PO BID [facility] Docusate Sodium (Colace) 100 mg PO BID [facility] Last Admin: 05/20/19 08:02 Dose: 100 mg Furosemide (Lasix) 20 mg PO DAILY [facility] Last Admin: 05/20/19 08:03 Dose: 20 mg Ceftriaxone Sodium 2 gm/ (Sodium Chloride) 50 mls @ 100 mls/hr IV Q24H [facility] Stop: 05/20/19 13:00 Last Admin: 05/19/19 10:20 Dose: 100 mls/hr Levothyroxine Sodium (Synthroid) 100 mcg PO ACBREAKFAST [facility] Last Admin: 05/20/19 07:50 Dose: 100 mcg Melatonin (Melatonin) 9 mg PO BEDTIME [facility] Last Admin: 05/19/19 20:02 Dose: 9 mg Metoprolol Succinate (Toprol Xl) 25 mg PO DAILY [facility] Last Admin: 05/20/19 08:04 Dose: 25 mg Ondansetron HCl (Zofran) 4 mg IV Q4H PRN PRN Reason: Nausea/Vomiting Oxycodone HCl (Oxycodone) 5 mg PO Q4H PRN PRN Reason: Pain (moderate 4-6) Last Admin: 05/19/19 07:53 Dose: 5 mg Polyethylene Glycol (Miralax) 17 gm PO DAILY PRN PRN Reason: Constipation Potassium Chloride (Klor-Con M20) 20 meq PO BID [facility] Last Admin: 05/20/19 08:03 Dose: 20 meq Sodium Chloride (Saline Flush) 10 ml FLUSH ASDIRECTED PRN PRN Reason: Keep Vein Open Discontinued Medications Albuterol/Ipratropium (Duoneb 3.0-0.5 Mg/3 Ml) 3 ml NEB ONETIME ONE Stop: 05/17/19 13:09 Last Admin: 05/17/19 13:36 Dose: 3 ml Amlodipine Besylate (Norvasc) 5 mg PO DAILY [facility] Last Admin: 05/18/19 09:00 Dose: 5 mg Baclofen (Lioresal) 10 mg PO ONETIME ONE Stop: 05/17/19 12:53 Last Admin: 05/19/19 22:18 Dose: Not Given Bupivacaine HCl (Marcaine 0.5%) Confirm Administered Dose 50 ml .ROUTE .STK-MED ONE Stop: 05/18/19 06:40 Last Admin: 05/18/19 08:02 Dose: 5 ml Fentanyl (Sublimaze) Confirm Administered Dose 100 mcg .ROUTE .STK-MED ONE Stop: 05/18/19 07:18 Furosemide (Lasix) 60 mg IVPUSH ONETIME ONE Stop: 05/17/19 13:52 Last Admin: 05/17/19 14:03 Dose: 60 mg Furosemide (Lasix) 40 mg PO DAILY [facility] Last Admin: 05/18/19 09:01 Dose: 40 mg Phytonadione 1 mg/ Sodium (Chloride) 50.5 mls @ 100 mls/hr IV ONETIME ONE Stop: 05/17/19 16:00 Last Admin: 05/17/19 16:06 Dose: 100 mls/hr Sodium Chloride (Normal Saline) 1,000 mls @ 100 mls/hr IV ASDIRECTED [facility] Last Admin: 05/18/19 10:44 Dose: 100 mls/hr Ketorolac Tromethamine (Toradol) 60 mg IM ONETIME ONE Stop: 05/17/19 12:54 Last Admin: 05/19/19 22:19 Dose: Not Given Lidocaine/Epinephrine (Xylocaine 1% With Epinephrine 1:100,000) Confirm Administered Dose 50 ml .ROUTE .STK-MED ONE Stop: 05/18/19 06:40 Last Admin: 05/18/19 08:02 Dose: 5 ml Lisinopril (Prinivil) 5 mg PO DAILY [facility] Last Admin: 05/18/19 09:00 Dose: 5 mg Midazolam HCl (Versed 1 Mg/Ml) Confirm Administered Dose 2 mg .ROUTE .STK-MED ONE Stop: 05/18/19 07:18 Oxycodone/Acetaminophen (Percocet 325-5 Mg) 1 tab PO ONETIME ONE Stop: 05/17/19 12:54 Last Admin: 05/19/19 22:19 Dose: Not Given Potassium Chloride (Klor-Con M20) 40 meq PO ONETIME ONE Stop: 05/17/19 21:01 Last Admin: 05/17/19 20:48 Dose: 40 meq Potassium Chloride (Klor-Con M20) 40 meq PO ONETIME ONE Stop: 05/17/19 16:46 Last Admin: 05/17/19 17:24 Dose: 40 meq Potassium Chloride (Klor-Con M20) 40 meq PO ONETIME ONE Stop: 05/17/19 21:01 Last Admin: 05/17/19 20:31 Dose: Not Given Potassium Chloride (Klor-Con M20) 40 meq PO ONETIME ONE Stop: 05/19/19 09:31 Last Admin: 05/19/19 10:17 Dose: 40 meq Propofol (Diprivan 20 Ml) Confirm Administered Dose 200 mg .ROUTE .STK-MED ONE Stop: 05/18/19 07:18 Warfarin Sodium (Coumadin) 2.5 mg PO ONETIME ONE Stop: 05/19/19 13:01 Last Admin: 05/19/19 12:51 Dose: 2.5 mg - Exam Quality Assessment: Supplemental Oxygen General: Alert, Cooperative, No Acute Distress Lungs: Normal Respiratory Effort, Rhonchi (moderate upper resp ). No: Crackles , Wheezing Cardiovascular: Regular Rate, Irregular Rhythm GI/Abdominal Exam: Soft, No Distention Extremities: No Pedal Edema Psy/Mental Status: Alert, Normal Affect Sepsis Event Note - Evaluation Sepsis Screening Result: No Definite Risk - Focused Exam Vital Signs: Vital Signs Temp Temp Pulse Pulse Resp BP BP 05/20/19 08:10 05/20/19 08:04 70 148/58 H 05/20/19 06:58 37.1 C 70 18 148/58 H 05/20/19 03:00 36.6 C 72 16 151/59 H 05/19/19 22:45 37.1 C 69 18 146/75 H Pulse Ox Pulse Ox 05/20/19 08:10 96 05/20/19 08:04 05/20/19 06:58 96 05/20/19 03:00 94 L 05/19/19 22:45 98 Date Exam was Performed: 05/20/19 Time Exam was Performed: 11:30 - Problem List & Annotations (1) Pneumonia SNOMED Code(s): 459370248 Code(s): J18.9 - PNEUMONIA, UNSPECIFIED ORGANISM Status: Acute Current Visit: Yes Qualifiers: Pneumonia type: due to unspecified organism Laterality: bilateral Lung location: lower lobe of lung Qualified Code(s): J18.9 - Pneumonia, unspecified organism Annotation/Comment:: Present on admission as noted on CT scan - Problem List Review Problem List Initiated/Reviewed/Updated: Yes - My Orders Last 24 Hours: My Active Orders 05/19/19 09:00 Furosemide [Lasix] 20 mg PO DAILY amLODIPine [Norvasc] 10 mg PO DAILY 05/19/19 09:16 Transfer Patient (Change bed) [ADT] Routine Discontinue Telemetry Monitoring [Cardiac Monitoring Discontinue] [RC] Click to Edit 05/19/19 09:30 Azithromycin [Zithromax] 500 mg PO DAILY 05/19/19 10:00 cefTRIAXone [Rocephin] 2 gm Sodium Chloride 0.9% [Normal Saline] 50 ml IV Q24H 05/20/19 10:00 Dextromethorphan/guaiFENesin [Robitussin DM] 10 ml PO TID 05/20/19 13:00 Warfarin [Coumadin] 2.5 mg PO ONETIME ONE 05/20/19 21:00 Cefdinir [Omnicef] 300 mg PO BID 05/21/19 05:00 INR,PT,PROTHROMBIN TIME [COAG] Timed - Plan Plan:: ASSESSMENT AND PLAN RIGHT PNEUMOTHORAX-possibly related to pneumonia, no history of trauma. Chest tube removed this morning and no pneumothorax on follow-up chest x-ray. No pain. -Chest x-ray in the morning -Surgical follow-up per Dr. Beltrán -Pain control BILATERAL LOWER LOBE PNEUMONIA-infiltrates were noted on the CT scan in the emergency room as well as chest x-ray. Cough still bothersome. Still requiring 1 L of supplemental oxygen. -Antibiotic coverage with cefdinir and azithromycin (5 days total) -Supplement oxygen as needed ELEVATED INR-INR 1.8 this morning. -Continue warfarin -Recheck INR in a.m. HYPERTENSION-stable. -Continue outpatient medications DEMENTIA-No behavior issues. -Melatonin 9 mg p.o. nightly MAINTENANCE ISSUES -DVT prophylaxis; mechanical until warfarin therapeutic -GI prophylaxis; not indicated -Powers catheter; not indicated -Nutrition; 2 g sodium diet DISPOSITION-anticipate discharge to home, possibly with home care after the hospital stay. Joseph Arguelles MD
[2019-05-20] MEDS: cefTRIAXone 2 GM in Sodium Chloride 0.9% 50 ML IV SCH (09:55)
--- NOTE | 2019-05-20 10:25 | PN ---
DATE OF SERVICE: 05/20/2019 SUBJECTIVE: Kailash had the chest tube removed today by Acosta Beltrán MD. He has in review of systems no pertinent positives or negatives with exception he has not had a bowel movement since 05/17/2019. OBJECTIVE: GENERAL: Kailash Hernandez is an 83-year-old male. VITAL SIGNS: Height is 5 feet 8.11 inches, weight is 155 pounds. TPR 98.7, 70, 18. Blood pressure 148/58. HEENT: Negative. NECK: Supple. HEART: Regular rate and rhythm. LUNGS: Revealed decreased breath sounds. There is a pressure dressing over the chest tube site. ASSESSMENT: 1. Pneumonia. 2. Spontaneous pneumothorax, right lung. 3. Elevated INR. 4. Hypertension. 5. Dementia. PLAN: Dulcolax 2 tablets b.i.d. orally, discontinue after the patient has bowel movement. We will evaluate p.r.n. or in the a.m. Jeri Alejandre PA-C /[id number]
[2019-05-20] MEDS: guaiFENesin/Dextromethorphan 100-10 MG/5 ML Soln 10 ML Cup PO SCH ×3 (11:11→21:19)
[2019-05-20] MEDS ORDERED: Warfarin 2.5 MG Tab PO ONE (13:00)
[2019-05-20] MEDS: Cefdinir 300 MG Cap PO SCH (21:19)
[2019-05-20] MEDS: Melatonin 3 MG Tab PO SCH (21:19)
[2019-05-21 07:14] VITALS: BP 143/60; PULSE 68
[2019-05-21] MEDS: Levothyroxine 100 MCG Tab PO SCH (07:42)
[2019-05-21] MEDS ORDERED: Warfarin 2.5 MG Tab PO ONE (08:30)
[2019-05-21] MEDS: Potassium Chloride 20 MEQ Tab.ER PO SCH (08:44)
[2019-05-21] MEDS: Bisacodyl 5 MG Tab PO SCH (08:44)
[2019-05-21] MEDS: Docusate Sodium 100 MG Cap PO SCH (08:44)
[2019-05-21] MEDS: Furosemide 20 MG Tab PO SCH (08:44)
[2019-05-21] MEDS: guaiFENesin/Dextromethorphan 100-10 MG/5 ML Soln 10 ML Cup PO SCH (08:45)
[2019-05-21] MEDS: Metoprolol Succinate 25 MG Tab.ER PO SCH (08:45)
[2019-05-21] MEDS: Cefdinir 300 MG Cap PO SCH (08:45)
[2019-05-21] MEDS: amLODIPine 10 MG Tab PO SCH (08:45)
[2019-05-21] MEDS: Azithromycin 250 MG Tab PO SCH (08:46)
--- NOTE | 2019-05-21 08:57 | CR ---
CHEST: 2 view CLINICAL HISTORY:Pneumothorax COMPARISON:05/20/2019 FINDINGS: Heart is enlarged. Lungs are generally hyperaerated. There is generalized prominence of the interstitial markings similar to prior study. There is persistent patchy density in the right upper lobe which may represent some atelectasis or infiltrate. This has increased slightly since prior study. There is patchy retrocardiac density which is similar to prior study and may also represent some infiltrate. Impression: No evidence of pneumothorax Bilateral infiltrates persist. This is superimposed over changes COPD Cardiomegaly with normal pulmonary vascularity
--- NOTE | 2019-05-21 09:40 | PCM.DCSUM1 ---
Discharge Summary - Hospital Course Brief History: 83-year-old male with history of chronic atrial fibrillation on long-term anticoagulation and mild dementia who presented with 2 to 3 days of progressive shortness of breath. Work-up in the emergency room was suggestive of a right-sided pneumothorax. INR was mildly supratherapeutic. He was admitted for chest tube placement and further management. Diagnosis: Stroke: No - Discharge Data Discharge Date: 05/21/19 Discharge Disposition: Home, W Home Health Agency 06 Condition: Good - Referral to Home Health Date of Face to Face Encounter: 05/21/19 Reason for Homebound Status: acute weakness and dyspnea 2/2 pneumothorax and pneumonia complicating chronic weakness Primary Care Physician: Logan Odonnell NP Skilled Need: Nursing. PT - Discharge Diagnosis/Problem(s) (1) Pneumothorax on right SNOMED Code(s): 270370805 ICD Code: J93.9 - PNEUMOTHORAX, UNSPECIFIED Status: Acute (2) Pneumonia SNOMED Code(s): 081809139 ICD Code: J18.9 - PNEUMONIA, UNSPECIFIED ORGANISM Status: Acute Problem Details: Present on admission as noted on CT scan Qualifiers: Pneumonia type: due to unspecified organism Laterality: bilateral Lung location: lower lobe of lung Qualified Code(s): J18.9 - Pneumonia, unspecified organism (3) CKD (chronic kidney disease) stage 3, GFR 30-59 ml/min SNOMED Code(s): 253312442 ICD Code: N18.3 - CHRONIC KIDNEY DISEASE, STAGE 3 (MODERATE) Status: Chronic (4) Chronic atrial fibrillation SNOMED Code(s): 418267437 ICD Code: I48.20 - CHRONIC ATRIAL FIBRILLATION, UNSPECIFIED Status: Chronic - Patient Summary/Data Consults: Consultations 05/17/19 16:45 Consult to Physician [CONS] Routine Consulting Provider: Acosta Beltrán Courtesy Call Completed to Consulting Physician: Yes Reason for Consult: Right pneumothorax, chest tube placement Hospital Course: Kailash presented to the emergency room with 2 to 3 days of progressive shortness of breath. X-ray imaging in the emergency room suggested a right-sided pneumothorax. A CT scan was obtained which confirmed a pneumothorax that was about 40% of the right side of the chest cavity. Also noted was a mild infiltrate of both lower lungs. At the time he was not febrile or coughing and his white count was normal so pneumonia was not strongly suspected. His INR was elevated at more than 4. He was admitted to the intensive care unit for close monitoring while his INR could be reversed and eventually a chest tube would be placed. Overnight following admission he did receive IV vitamin K to reverse his INR. He was stable overnight. The morning after admission he did have a chest tube placed on the right side. This was uneventful. Follow-up chest x-ray showed resolution of the pneumothorax. Over the next couple of days he did well with a chest tube in place. His pain was very well controlled. His air leak resolved very quickly. We did note on serial chest x- rays that the initially small bilateral lower lobe infiltrates were slightly larger each day. With a progression in his cough we did elect to start him on antibiotics with the suspicion that a community-acquired pneumonia that was present but not initially recognized at the time of admission was the cause for his pneumothorax. He has not had any fevers. We have been able to wean him off the supplemental oxygen. His chest tube has been removed and he has not had recurrence of the pneumothorax. He is back on his warfarin and his INR is therapeutic. He is up and moving around fairly well and is nearly back to his baseline. He is safe for discharge home at this time. He will be on antibiotics for several more days after hospital discharge. - Patient Instructions Diet: Usual Diet as Tolerated, Drink 8-10+ Glasses/Day Activity: As Tolerated Showering/Bathing: May Shower Wound/Incision Care: Keep Operative Site/Wound Site Clean and Dry (keep covered with a bandaid until closed ) Notify Provider of: Fever, Increased Pain (shortness of breath) Other/Special Instructions: 1. Use acapella and incentive spirometer 10 times every hour while awake for one week. 2. For your pneumonia you will need additional antibiotic therapy. Please take azithromycin 500 mg by mouth daily for two more days (start tomorrow). Also take cefidinir 300 mg twice daily for 9 doses (start tonight). Consider using Robitussin DM three times daily until your sputum resolves. 3. Increase activity as tolerated over the next 1-2 weeks. 4. Recheck INR on May 24. - Discharge Plan *PRESCRIPTION DRUG MONITORING PROGRAM REVIEWED*: Not Applicable *COPY OF PRESCRIPTION DRUG MONITORING REPORT IN PATIENT NATY: Not Applicable Prescriptions/Med Rec: Azithromycin 500 mg PO DAILY #2 tablet Cefdinir [Omnicef] 300 mg PO BID #9 cap Home Medications: Home Meds Levothyroxine [Synthroid] 100 mcg PO DAILY 05/23/14 [History] Potassium Chloride [Klor-Con M20] 20 meq PO BID 05/23/14 [History] Warfarin [Coumadin] 1.25 - 2.5 mg PO DAILY 05/23/14 [History] Metoprolol Succinate 25 mg PO DAILY 05/17/19 [History] Triamcinolone Acetonide [Kenalog 0.1% Crm] 1 applic TOP TID PRN 05/17/19 [ History] Furosemide 20 mg PO DAILY 05/18/19 [History] amLODIPine Besylate [Amlodipine Besylate] 10 mg PO DAILY 05/18/19 [History] Azithromycin 500 mg PO DAILY #2 tablet 05/21/19 [Rx] Cefdinir [Omnicef] 300 mg PO BID #9 cap 05/21/19 [Rx] Oxygen Therapy Mode: Room Air Referrals: Coumadin,Clinic [Ordering Only Provider] - 05/25/19 2:00 pm Glen Littlejohn MD [Physician] - 05/25/19 1:30 pm (Please arrive 15 minutes early to register for your appointment.) - Discharge Summary/Plan Comment DC Time >30 min.: Yes (35-coordinating home health care) - Patient Data Vitals - Most Recent: Last Vital Signs Temp 37.1 C 05/21/19 07:13 Pulse 68 05/21/19 08:45 Resp 16 05/21/19 07:13 BP 143/60 H 05/21/19 08:45 Pulse Ox 95 05/21/19 08:28 Weight - Most Recent: 70.67 kg I&O - Last 24 hours: Intake & Output 05/20/19 05/21/19 05/21/19 22:59 06:59 14:59 Intake Total 240 675 Output Total 200 250 Balance 40 425 Lab Results - Last 24 hrs: Laboratory Results - last 24 hr 05/21/19 Range/Units 03:57 PT 27.2 H (9.5-12.0) sec INR 2.66 H (0.80-1.20) Med Orders - Current: Current Medications Acetaminophen (Tylenol) 650 mg PO Q4H PRN PRN Reason: Pain (Mild 1-3)/fever Albuterol (Proventil Neb Soln) 2.5 mg NEB Q4H PRN PRN Reason: Shortness Of Breath/wheezing Amlodipine Besylate (Norvasc) 10 mg PO DAILY [facility] Last Admin: 05/21/19 08:45 Dose: 10 mg Azithromycin (Zithromax) 500 mg PO DAILY [facility] Last Admin: 05/21/19 08:46 Dose: 500 mg Bisacodyl (Dulcolax) 10 mg PO BID [facility] Last Admin: 05/21/19 08:44 Dose: 10 mg Cefdinir (Omnicef) 300 mg PO BID [facility] Last Admin: 05/21/19 08:45 Dose: 300 mg Docusate Sodium (Colace) 100 mg PO BID [facility] Last Admin: 05/21/19 08:44 Dose: 100 mg Furosemide (Lasix) 20 mg PO DAILY [facility] Last Admin: 05/21/19 08:44 Dose: 20 mg Guaifenesin/Dextromethorphan (Robitussin Dm) 10 ml PO TID [facility] Last Admin: 05/21/19 08:45 Dose: 10 ml Levothyroxine Sodium (Synthroid) 100 mcg PO ACBREAKFAST [facility] Last Admin: 05/21/19 07:42 Dose: 100 mcg Melatonin (Melatonin) 9 mg PO BEDTIME [facility] Last Admin: 05/20/19 21:19 Dose: 9 mg Metoprolol Succinate (Toprol Xl) 25 mg PO DAILY [facility] Last Admin: 05/21/19 08:45 Dose: 25 mg Ondansetron HCl (Zofran) 4 mg IV Q4H PRN PRN Reason: Nausea/Vomiting Oxycodone HCl (Oxycodone) 5 mg PO Q4H PRN PRN Reason: Pain (moderate 4-6) Last Admin: 05/19/19 07:53 Dose: 5 mg Polyethylene Glycol (Miralax) 17 gm PO DAILY PRN PRN Reason: Constipation Potassium Chloride (Klor-Con M20) 20 meq PO BID [facility] Last Admin: 05/21/19 08:44 Dose: 20 meq Sodium Chloride (Saline Flush) 10 ml FLUSH ASDIRECTED PRN PRN Reason: Keep Vein Open Last Admin: 05/20/19 09:48 Dose: 10 ml Discontinued Medications Albuterol/Ipratropium (Duoneb 3.0-0.5 Mg/3 Ml) 3 ml NEB ONETIME ONE Stop: 05/17/19 13:09 Last Admin: 05/17/19 13:36 Dose: 3 ml Amlodipine Besylate (Norvasc) 5 mg PO DAILY [facility] Last Admin: 05/18/19 09:00 Dose: 5 mg Baclofen (Lioresal) 10 mg PO ONETIME ONE Stop: 05/17/19 12:53 Last Admin: 05/19/19 22:18 Dose: Not Given Bupivacaine HCl (Marcaine 0.5%) Confirm Administered Dose 50 ml .ROUTE .STK-MED ONE Stop: 05/18/19 06:40 Last Admin: 05/18/19 08:02 Dose: 5 ml Fentanyl (Sublimaze) Confirm Administered Dose 100 mcg .ROUTE .STK-MED ONE Stop: 05/18/19 07:18 Furosemide (Lasix) 60 mg IVPUSH ONETIME ONE Stop: 05/17/19 13:52 Last Admin: 05/17/19 14:03 Dose: 60 mg Furosemide (Lasix) 40 mg PO DAILY [facility] Last Admin: 05/18/19 09:01 Dose: 40 mg Phytonadione 1 mg/ Sodium (Chloride) 50.5 mls @ 100 mls/hr IV ONETIME ONE Stop: 05/17/19 16:00 Last Admin: 05/17/19 16:06 Dose: 100 mls/hr Sodium Chloride (Normal Saline) 1,000 mls @ 100 mls/hr IV ASDIRECTED [facility] Last Admin: 05/18/19 10:44 Dose: 100 mls/hr Ceftriaxone Sodium 2 gm/ (Sodium Chloride) 50 mls @ 100 mls/hr IV Q24H [facility] Stop: 05/20/19 13:00 Last Admin: 05/20/19 09:55 Dose: 100 mls/hr Ketorolac Tromethamine (Toradol) 60 mg IM ONETIME ONE Stop: 05/17/19 12:54 Last Admin: 05/19/19 22:19 Dose: Not Given Lidocaine/Epinephrine (Xylocaine 1% With Epinephrine 1:100,000) Confirm Administered Dose 50 ml .ROUTE .STK-MED ONE Stop: 05/18/19 06:40 Last Admin: 05/18/19 08:02 Dose: 5 ml Lisinopril (Prinivil) 5 mg PO DAILY [facility] Last Admin: 05/18/19 09:00 Dose: 5 mg Midazolam HCl (Versed 1 Mg/Ml) Confirm Administered Dose 2 mg .ROUTE .STK-MED ONE Stop: 05/18/19 07:18 Oxycodone/Acetaminophen (Percocet 325-5 Mg) 1 tab PO ONETIME ONE Stop: 05/17/19 12:54 Last Admin: 05/19/19 22:19 Dose: Not Given Potassium Chloride (Klor-Con M20) 40 meq PO ONETIME ONE Stop: 05/17/19 21:01 Last Admin: 05/17/19 20:48 Dose: 40 meq Potassium Chloride (Klor-Con M20) 40 meq PO ONETIME ONE Stop: 05/17/19 16:46 Last Admin: 05/17/19 17:24 Dose: 40 meq Potassium Chloride (Klor-Con M20) 40 meq PO ONETIME ONE Stop: 05/17/19 21:01 Last Admin: 05/17/19 20:31 Dose: Not Given Potassium Chloride (Klor-Con M20) 40 meq PO ONETIME ONE Stop: 05/19/19 09:31 Last Admin: 05/19/19 10:17 Dose: 40 meq Propofol (Diprivan 20 Ml) Confirm Administered Dose 200 mg .ROUTE .STK-MED ONE Stop: 05/18/19 07:18 Warfarin Sodium (Coumadin) 2.5 mg PO ONETIME ONE Stop: 05/19/19 13:01 Last Admin: 05/19/19 12:51 Dose: 2.5 mg Warfarin Sodium (Coumadin) 2.5 mg PO ONETIME ONE Stop: 05/20/19 13:01 Last Admin: 05/20/19 13:11 Dose: 2.5 mg Warfarin Sodium (Coumadin) 1.25 mg PO ONETIME ONE Stop: 05/21/19 08:31 Last Admin: 05/21/19 08:44 Dose: 1.25 mg - Exam Quality Assessment: Denies: Supplemental Oxygen General: Reports: Alert, Cooperative, No Acute Distress Lungs: Reports: Normal Respiratory Effort Cardiovascular: Reports: Regular Rate, Irregular Rhythm GI/Abdominal Exam: Soft, No Distention Extremities: No Pedal Edema Psy/Mental Status: Reports: Alert, Normal Affect *Q Meaningful Use (DIS) - VTE *Q VTE Pharmacological Contraindications *Q: High INR Value
--- NOTE | 2019-05-21 10:32 | DISCH ---
ADMISSION DIAGNOSES: 1. Pneumothorax, right lung. 2. Underlying dementia. 3. Cardiac arrhythmia. 4. Hypercholesterolemia. 5. Hypertension. 6. History of cerebrovascular accident. 7. Hypothyroidism. DISCHARGE DIAGNOSIS: Right chest tube insertion, Acosta Beltrán MD, 05/19/2019. HISTORY: Kailash Hernandez is an 83-year-old male who presented to the emergency room with shortness of breath secondary to pneumothorax of the right lung. He was admitted on 05/17/2019. On 05/18/2019, he was stable. He had a right chest tube placed with resolution of the pneumothorax on the right. He reported his pain was controlled. His INR was elevated, but was down to 1.8. Hypertension was stable and he was tolerating his 2 g sodium diet. On 05/19/2019, he did have a few episodes of mild bradycardia while sleeping. He was off oxygen. He reported no pain. Chest x-ray did show an increase in bilateral lower infiltrate, unspecified organism. He was given Lasix 20 mg daily, potassium 40 mEq one time, restarted on Norvasc. Telemetry was discontinued. He was covered with ceftriaxone and azithromycin. INR was 1.4 and warfarin, Coumadin, was restarted. On 05/20/2019, chest tube was removed per Acosta Beltrán MD. The patient tolerated the procedure well. Chest x- ray did not show any evidence of pneumothorax. On 05/21/2019, the patient was ready to be discharged to home. Chest x-ray was negative. Dressing was removed per Acosta Beltrán MD. Band-Aid was placed over open area and Coumadin was given today at 1.25 mg. PHYSICAL EXAMINATION: GENERAL: Kailash Hernandez is an 83-year-old male. VITAL SIGNS: Height is 5 feet 8.11 inches, weight is 155 pounds. TPR at 07:13 was 98.7, 68, 16. Blood pressure 143/60. HEENT: Negative. NECK: Supple. HEART: Regular rate and rhythm. LUNGS: Clear. ABDOMEN: Soft, nontender. EXTREMITIES: Without peripheral edema. DISPOSITION: Discharged to home. CONDITION: Stable and improving. FOLLOWUP: Followup appointment with primary care provider in 1 week with chest x-ray prior to appointment. DISCHARGE MEDICATIONS: He is to resume his home medications: 1. Furosemide 20 mg oral daily. 2. Synthroid 100 mcg oral daily. 3. Metoprolol succinate 25 mg oral daily. 4. Potassium chloride 20 mEq oral twice daily. 5. Kenalog 0.1% cream one applicator topical 3 times daily p.r.n. rash. 6. Coumadin 1.25 to 2.5 mg oral daily. 7. Amlodipine 10 mg oral daily. DIET: Usual diet as tolerated. Drink 8 to 10 glasses of water a day. ACTIVITY: As tolerated. SHOWER/BATHING: May shower. DISCHARGE INSTRUCTIONS: Notify provider if any fever, increased pain, shortness of breath. Wound incision care: Keep site clean and dry. Keep covered with Band-Aid until closed. Special instruction: Use incentive spirometer 10 times every hour while awake for 1 week.
--- NOTE | 2019-05-22 14:06 | CR ---
CHEST: Portable 05/17/2019 at 1:37 PM CLINICAL HISTORY:SOB COMPARISON:2015 FINDINGS: Heart is enlarged. Pulmonary vascular is normal. There is a moderate right pneumothorax of approximately 50%. There is no significant shift of the external structures. There are atherosclerotic changes in the aorta.. There is underlying COPD and some scattered pleural parenchymal scarring and patchy fibrosis. Impression: Moderate right-sided pneumothorax CHEST: Portable 05/18/2019 at 03 56 CLINICAL HISTORY:Pneumothorax COMPARISON:05/17 FINDINGS: Heart is large. There is a persistent right-sided pneumothorax. There appears to be some minimal reexpansion. The there is underlying COPD with some pleural parenchymal scarring. Impression: Slight reduction in the size of the right-sided pneumothorax. CHEST: Portable 05/18/2019 at 07 47 CLINICAL HISTORY:Chest tube COMPARISON:Earlier studies FINDINGS: There is been interval placement of a right-sided chest tube which appears to be a Powers catheter with balloon inflated. The pneumothorax has resolved. The heart is enlarged. There is underlying COPD with pleural parenchymal scarring area Impression: Interval placement of a right chest tube with significant reduction of right-sided pneumothorax MTDD
--- NOTE | 2019-06-24 15:20 | OR ---
DATE OF PROCEDURE: 05/18/2019 SURGEON: Acosta Beltrán MD PREOPERATIVE DIAGNOSIS: Spontaneous right pneumothorax. POSTOPERATIVE DIAGNOSIS: Spontaneous right pneumothorax. OPERATIVE PROCEDURE: Right tube thoracostomy (chest tube insertion). ANESTHESIA: Local plus IV sedation. INDICATION FOR PROCEDURE: This is an 83-year-old male presenting with spontaneous right pneumothorax. This was fairly substantial in size and was not associated with any significant blood or fluid accumulation. Given this, the plan will be to proceed with an anterior Powers catheter type chest tube. Potential risks of the procedure including bleeding, infection, injury to underlying lung or vasculature were reviewed, and the patient wishes to proceed. DETAILS OF PROCEDURE: The patient was taken to the operating room and placed in a semi- sitting position. IV sedation was administered, after which the right anterior chest wall was prepped and draped. In the third interspace, in the midclavicular line, the skin and underlying soft tissues were anesthetized with 1% lidocaine mixed with Marcaine. A small transverse incision was made and pleural space entered bluntly. An 18-British Powers catheter was then inserted without difficulty and inflated with 10 mL of saline and then pulled up snugly against the chest wall. The tube was placed to suction. The immediate postoperative chest x-ray showed near-complete evacuation of pneumothorax, and there appeared to be at this point no significant air leak. Dressing was applied after the tube had been sutured to the skin with some 3-0 nylon stitch. The patient was taken to the recovery room in satisfactory condition. Acosta Beltrán MD /[id number]
== END 2019-05-21 10:45 | disposition home health service (06) | DRG 199 ==
LOC: JP.ED 12:28 → JP.ICU 16:17 → JP.MS 05-19 12:40
PROVIDERS: ADMIT Hospitalist; ATTEND Internal Medicine
PROC: 0W9930Z Drainage of Right Pleural Cavity with Drainage Device, Percutaneous Approach (ICD-10-PCS; principal; 2019-05-18)
DX: J93.9 Pneumothorax, unspecified (principal); Z87.891 Personal history of nicotine dependence; J93.83 Other pneumothorax; I48.91 Unspecified atrial fibrillation; J18.9 Pneumonia, unspecified organism; I11.0 Hypertensive heart disease with heart failure; I48.20 Chronic atrial fibrillation, unspecified; I13.0 Hypertensive heart and chronic kidney disease with heart failure and stage 1 through stage 4 chronic kidney disease, or unspecified chronic kidney disease; F03.90 Unspecified dementia, unspecified severity, without behavioral disturbance, psychotic disturbance, mood disturbance, and anxiety; I50.9 Heart failure, unspecified; Z79.890 Hormone replacement therapy; E78.00 Pure hypercholesterolemia, unspecified; E03.9 Hypothyroidism, unspecified; R79.1 Abnormal coagulation profile; N18.3 Chronic kidney disease, stage 3 (moderate); Z86.73 Personal history of transient ischemic attack (TIA), and cerebral infarction without residual deficits; Z79.01 Long term (current) use of anticoagulants; Z79.899 Other long term (current) drug therapy; Z99.81 Dependence on supplemental oxygen
CPT/HCPCS: 36415; 36600; 71045 ×2; 71250; 80053; 81001; 82803; 83880; 84443; 85025; 85610; 93005; 94640; 96374; 99285 ×2; J1940; J3430; J7050; 71046; 71046-26; 80048; 83735; 84100; 85027; 93010; 94667; A9270-GY; J0696; J2250; J2704; J3010; J3490; J7030; J7620-GY

== ENCOUNTER 2019-09-12 10:11 | Emergency (ER) | payer MEDICARE, BC ==
--- NOTE | 2019-09-12 11:44 | EDM.PDOC ---
ED HPI GENERAL MEDICAL PROBLEM - General Chief Complaint: Respiratory Problem Stated Complaint: SOB - COLLAPSED LUNG IN APRIL Time Seen by Provider: 09/12/19 11:43 Source of Information: Reports: Patient History Limitations: Reports: No Limitations - History of Present Illness INITIAL COMMENTS - FREE TEXT/NARRATIVE: pt has a week of increased sob and increased ankle swelling. Onset: Gradual Duration: Day(s): Location: Reports: Chest Associated Symptoms: Reports: Cough, Shortness of Breath - Related Data Allergies Allergy/AdvReac Type Severity Reaction Status Date / Time No Known Allergies Allergy Verified 09/12/19 11:14 Home Meds: Home Meds Levothyroxine [Synthroid] 100 mcg PO DAILY 05/23/14 [History] Potassium Chloride [Klor-Con M20] 20 meq PO BID 05/23/14 [History] Warfarin [Coumadin] 1.25 - 2.5 mg PO DAILY 05/23/14 [History] Metoprolol Succinate 25 mg PO DAILY 05/17/19 [History] Triamcinolone Acetonide [Kenalog 0.1% Crm] 1 applic TOP TID PRN 05/17/19 [History] Furosemide 20 mg PO DAILY 05/18/19 [History] amLODIPine Besylate [Amlodipine Besylate] 10 mg PO DAILY 05/18/19 [History] Past Medical History HEENT History: Reports: Epistaxis Cardiovascular History: Reports: Afib, Arrhythmia, High Cholesterol, Hypertension Respiratory History: Reports: Pneumothorax Other Respiratory History: Apr 2019 Gastrointestinal History: Reports: None Genitourinary History: Reports: Chronic Renal Insuffiency Musculoskeletal History: Reports: None Neurological History: Reports: CVA Psychiatric History: Reports: Dementia Endocrine/Metabolic History: Reports: Hypothyroidism Immunologic History: Reports: None Oncologic (Cancer) History: Reports: None Dermatologic History: Reports: Other (See Below) Other Dermatologic History: leg sores - Infectious Disease History Infectious Disease History: Reports: Measles - Past Surgical History Other Respiratory Surgeries/Procedures: cest tube Social & Family History - Tobacco Use Smoking Status *Q: Never Smoker - Caffeine Use Caffeine Use: Reports: Coffee - Recreational Drug Use Recreational Drug Use: No ED ROS GENERAL - Review of Systems Review Of Systems: See Below Constitutional: Reports: Other ( sob) HEENT: Reports: No Symptoms Respiratory: Reports: Shortness of Breath, Cough Cardiovascular: Reports: Dyspnea on Exertion, Edema Endocrine: Reports: No Symptoms GI/Abdominal: Reports: No Symptoms : Reports: No Symptoms Musculoskeletal: Reports: No Symptoms Skin: Reports: No Symptoms ED EXAM, GENERAL - Physical Exam Exam: See Below Free Text/Narrative:: pt arrived with a increase in sob and a concern that he could have collapsed his lung again. He has not had a fever. Exam Limited By: No Limitations General Appearance: Alert, Anxious, Mild Distress Ears: Normal TMs Nose: Normal Inspection Throat/Mouth: Normal Inspection Head: Atraumatic Neck: Normal Inspection Respiratory/Chest: No Respiratory Distress, Other (o2 sats are in the low 90s. ) Cardiovascular: Irregularly Irregular GI/Abdominal: Soft, Non-Tender (Male) Exam: Deferred Rectal (Males) Exam: Deferred Back Exam: Normal Inspection Extremities: Pedal Edema, Other (pt has marked pedal edema) Neurological: Alert, Oriented, Normal Cognition Psychiatric: Normal Affect Course - Vital Signs Last Recorded V/S: Last Vital Signs Temp 36.2 C 09/12/19 11:10 Pulse 86 09/12/19 14:45 Resp 19 09/12/19 14:45 BP 182/87 H 09/12/19 14:45 Pulse Ox 90 L 09/12/19 14:45 - Orders/Labs/Meds Orders: Active Orders 24 hr Category Date Time Status EKG Documentation Completion [RC] ASDIRECTED Care 09/12/19 11:42 Active Saline Lock Insert [OM.PC] Routine Oth 09/12/19 12:32 Ordered EKG 12 Lead [EK] Routine Ther 09/12/19 11:41 Ordered Labs: Laboratory Tests 09/12/19 09/12/19 09/12/19 Range/Units 11:52 11:52 11:52 WBC 10.2 (4.5-11.0) K/uL RBC 3.93 L (4.30-5.90) M/uL Hgb 10.9 L (12.0-15.0) g/dL Hct 33.9 L (40.0-54.0) % MCV 86 (80-98) fL MCH 28 (27-31) pg MCHC 32 (32-36) % Plt Count 294 (150-400) K/uL Neut % (Auto) 84 H (36-66) % Lymph % (Auto) 6 L (24-44) % [place] % (Auto) 9 H (2-6) % Eos % (Auto) 1 L (2-4) % Baso % (Auto) 1 (0-1) % PT (9.5-12.0) sec INR (0.80-1.20) Sodium 133 L (140-148) mmol/L Potassium 4.0 (3.6-5.2) mmol/L Chloride 97 L (100-108) mmol/L Carbon Dioxide 26 (21-32) mmol/L Anion Gap 14.0 (5.0-14.0) mmol/L BUN 11 (7-18) mg/dL Creatinine 1.4 H (0.8-1.3) mg/dL Est Cr Clr Drug Dosing 37.32 mL/min Estimated GFR (MDRD) 48 L (>60) Glucose 119 H (74-106) mg/dL Calcium 8.7 (8.5-10.1) mg/dL Total Bilirubin 0.9 (0.2-1.0) mg/dL AST 28 (15-37) U/L ALT 26 (12-78) U/L Alkaline Phosphatase 215 H (46-116) U/L Troponin I < 0.017 (0.000-0.056) ng/mL NT-Pro-B Natriuret Pep (5-450) pg/mL Total Protein 8.4 H (6.4-8.2) g/dL Albumin 3.3 L (3.4-5.0) g/dL Globulin 5.1 H (2.3-3.5) g/dL Albumin/Globulin Ratio 0.7 L (1.2-2.2) Urine Color (YELLOW) Urine Appearance (CLEAR) Urine pH (5.0-8.0) Ur Specific [place] (1.008-1.030) Urine Protein (NEGATIVE) mg/dL Urine Glucose (UA) (NEGATIVE) mg/dL Urine Ketones (NEGATIVE) mg/dL Urine Occult Blood (NEGATIVE) Urine Nitrite (NEGATIVE) Urine Bilirubin (NEGATIVE) Urine Urobilinogen (0.2-1.0) EU/dL Ur Leukocyte Esterase (NEGATIVE) Urine RBC (0-5) Urine WBC (0-5) Ur Epithelial Cells Amorphous Sediment Urine Bacteria Urine Mucus 06/20/20 06/20/20 06/20/20 Range/Units 11:52 13:03 13:49 WBC (4.5-11.0) K/uL RBC (4.30-5.90) M/uL Hgb (12.0-15.0) g/dL Hct (40.0-54.0) % MCV (80-98) fL MCH (27-31) pg MCHC (32-36) % Plt Count (150-400) K/uL Neut % (Auto) (36-66) % Lymph % (Auto) (24-44) % [place] % (Auto) (2-6) % Eos % (Auto) (2-4) % Baso % (Auto) (0-1) % PT 44.2 H (9.5-12.0) sec INR 4.45 H* (0.80-1.20) Sodium (140-148) mmol/L Potassium (3.6-5.2) mmol/L Chloride (100-108) mmol/L Carbon Dioxide (21-32) mmol/L Anion Gap (5.0-14.0) mmol/L BUN (7-18) mg/dL Creatinine (0.8-1.3) mg/dL Est Cr Clr Drug Dosing mL/min Estimated GFR (MDRD) (>60) Glucose (74-106) mg/dL Calcium (8.5-10.1) mg/dL Total Bilirubin (0.2-1.0) mg/dL AST (15-37) U/L ALT (12-78) U/L Alkaline Phosphatase (46-116) U/L Troponin I (0.000-0.056) ng/mL NT-Pro-B Natriuret Pep 3172 H (5-450) pg/mL Total Protein (6.4-8.2) g/dL Albumin (3.4-5.0) g/dL Globulin (2.3-3.5) g/dL Albumin/Globulin Ratio (1.2-2.2) Urine Color Yellow (YELLOW) Urine Appearance Clear (CLEAR) Urine pH 6.5 (5.0-8.0) Ur Specific [place] 1.020 (1.008-1.030) Urine Protein 30 H (NEGATIVE) mg/dL Urine Glucose (UA) Negative (NEGATIVE) mg/dL Urine Ketones Negative (NEGATIVE) mg/dL Urine Occult Blood Negative (NEGATIVE) Urine Nitrite Negative (NEGATIVE) Urine Bilirubin Negative (NEGATIVE) Urine Urobilinogen 0.2 (0.2-1.0) EU/dL Ur Leukocyte Esterase Negative (NEGATIVE) Urine RBC 0-5 (0-5) Urine WBC Not seen (0-5) Ur Epithelial Cells Not seen Amorphous Sediment Not seen Urine Bacteria Not seen Urine Mucus Not seen Meds: Medications Discontinued Medications Generic Name Dose Route Start Last Admin Trade Name Freq PRN Reason Stop Dose Admin Furosemide 40 mg 09/12/19 12:32 09/12/19 12:57 Lasix IVPUSH 09/12/19 12:33 40 mg ONETIME ONE Administration Sodium Chloride 10 ml 09/12/19 12:32 09/12/19 12:56 Saline Flush FLUSH 10 ml ASDIRECTED PRN Administration Keep Vein Open - Re-Assessments/Exams Free Text/Narrative Re-Assessment/Exam: 09/12/19 15:31 pt had a chest xray which did not reveal any sign of a pneumo. He has some rt middle lobe opacitied and also left lower lobe opacoties. These may be chronic. He has some small effusions. . His renal funtion is borderline. Departure - Departure Time of Disposition: 15:25 Disposition: Home, Self-Care 01 Condition: Fair Clinical Impression: Fluid overload, Elevated INR, Anemia - Discharge Information Instructions: Heart Failure, Self Care, [id number] Referrals: Glen Littlejohn MD [Primary Care Provider] - Forms: ED Department Discharge Care Plan Goals: hold coumadin sun and saturday, saturday take 1.25 mg, sat take 2.[address] Littlejohn liv or yesy to check inr, and chf. Lasix 40mg daily until he see Dr Littlejohn. Sepsis Event Note (ED) - Evaluation Sepsis Screening Result: No Definite Risk - Focused Exam Vital Signs: Vital Signs Temp Pulse Resp BP Pulse Ox 09/12/19 14:45 86 19 182/87 H 90 L 09/12/19 14:14 78 18 210/78 H 90 L 09/12/19 13:45 73 16 195/75 H 93 L 09/12/19 13:15 72 16 179/80 H 91 L 09/12/19 12:44 72 16 152/80 H 92 L 09/12/19 12:15 74 18 156/75 H 92 L 09/12/19 11:32 69 18 151/70 H 95 09/12/19 11:10 36.2 C 73 24 H 162/73 H 92 L 09/12/19 11:08 36.2 C 73 24 H 162/73 H 92 L - My Orders Last 24 Hours: My Active Orders 09/12/19 11:41 EKG 12 Lead [EK] Routine 09/12/19 11:42 EKG Documentation Completion [RC] ASDIRECTED 09/12/19 12:32 Saline Lock Insert [OM.PC] Routine - Assessment/Plan Last 24 Hours: My Active Orders 09/12/19 11:41 EKG 12 Lead [EK] Routine 09/12/19 11:42 EKG Documentation Completion [RC] ASDIRECTED 09/12/19 12:32 Saline Lock Insert [OM.PC] Routine
[2019-09-12] MEDS ORDERED: Sodium Chloride 0.9% 10 ML Syringe FLUSH PRN (12:32)
[2019-09-12] MEDS ORDERED: Furosemide 40 MG/4 ML VIAL IVPUSH ONE (12:32)
--- NOTE | 2019-09-12 14:01 | CRLCR ---
Indication: Shortness breath. Technique: PA and lateral views the chest. Comparison: May 21, 2019. Findings: The heart is enlarged. Small bilateral pleural effusions are identified, greater on the left than the right. Opacities are identified in the right middle lobe and left lower lobe, atelectasis versus infiltrate. Impression: Right middle and left lower lobe opacities. Cardiomegaly. Small bilateral pleural effusions, greater on the left than the right. Dictated by Carolina Parikh MD @ Sep 12 2019 1:59PM Signed by Dr. Carolina Parikh @ Sep 12 2019 2:00PM
[2019-09-12 15:26] VITALS: BP 182/87; PULSE 86
== END 2019-09-12 15:49 | disposition home or self-care (01) ==
LOC: JP.ED 10:11
DX: I12.9 Hypertensive chronic kidney disease with stage 1 through stage 4 chronic kidney disease, or unspecified chronic kidney disease (principal); N18.9 Chronic kidney disease, unspecified; D63.1 Anemia in chronic kidney disease; R79.1 Abnormal coagulation profile; E03.9 Hypothyroidism, unspecified; Z86.73 Personal history of transient ischemic attack (TIA), and cerebral infarction without residual deficits; E78.00 Pure hypercholesterolemia, unspecified; I48.91 Unspecified atrial fibrillation; Z79.01 Long term (current) use of anticoagulants; Z79.899 Other long term (current) drug therapy
CPT/HCPCS: 36415; 71046; 80053; 81001; 83880; 84484; 85025; 85610; 93005; 96374; 99285; J1940

== ENCOUNTER 2021-02-27 14:37 | Emergency (ER) | payer MEDICARE, BC ==
[2021-02-27 14:57] VITALS: BP 144/77; PULSE 83
--- NOTE | 2021-02-27 15:37 | EDM.PDOC ---
ED HPI GENERAL MEDICAL PROBLEM - General Chief Complaint: Upper Extremity Injury/Pain Stated Complaint: FELL RIGHT ARM SORE Time Seen by Provider: 02/27/21 15:20 Source of Information: Reports: Patient, Family History Limitations: Reports: No Limitations - History of Present Illness INITIAL COMMENTS - FREE TEXT/NARRATIVE: 85-year-old male who still lives at home with his but has home health coming on a fairly frequent basis, felt that he was more weak on his right side today than usual. His family also noticed that he seemed to be slumping in his chair to the right 4 days ago and has been more unsteady ambulating since that time. He also fell 3 days ago and hurt his right wrist and hand, they did not know it was hurting until today. They took him into the walk-in clinic to assess these problems and they sent him to the emergency room. The patient himself other than pain in his right wrist and hand has no complaints and thinks he is fine. He has no headache, visual complaints, his speech is clear. Onset: Sudden (4 days ago seem to develop right-sided weakness, 3 days ago had a fall and hurt his right arm and wrist) Location: Reports: Lower Extremity, Right Associated Symptoms: Reports: No Other Symptoms Left Wrist Pain Score (Numeric/FACES): 8 - Related Data Allergies Allergy/AdvReac Type Severity Reaction Status Date / Time No Known Allergies Allergy Verified 09/12/19 11:14 Home Meds: Home Meds Levothyroxine [Synthroid] 100 mcg PO DAILY 05/23/14 [History] Potassium Chloride [Klor-Con M20] 20 meq PO BID 05/23/14 [History] Warfarin [Coumadin] 1.25 - 2.5 mg PO DAILY 05/23/14 [History] Metoprolol Succinate 25 mg PO DAILY 05/17/19 [History] Triamcinolone Acetonide [Kenalog 0.1% Crm] 1 applic TOP TID PRN 05/17/19 [History] Furosemide 20 mg PO DAILY 05/18/19 [History] amLODIPine Besylate [Amlodipine Besylate] 5 mg PO DAILY 05/18/19 [History] Past Medical History HEENT History: Reports: Epistaxis Cardiovascular History: Reports: Afib, Arrhythmia, High Cholesterol, Hypertension Respiratory History: Reports: Pneumothorax Other Respiratory History: Apr 2019 Gastrointestinal History: Reports: None Genitourinary History: Reports: Chronic Renal Insuffiency Musculoskeletal History: Reports: None Neurological History: Reports: CVA Psychiatric History: Reports: Dementia Endocrine/Metabolic History: Reports: Hypothyroidism Immunologic History: Reports: None Oncologic (Cancer) History: Reports: None Dermatologic History: Reports: Other (See Below) Other Dermatologic History: leg sores - Infectious Disease History Infectious Disease History: Reports: Measles - Past Surgical History Other Respiratory Surgeries/Procedures: cest tube Social & Family History - Tobacco Use Tobacco Use Status *Q: Never Tobacco User - Caffeine Use Caffeine Use: Reports: Coffee - Alcohol Use Days Per Week of Alcohol Use: 7 Number of Drinks Per Day: 1 Total Drinks Per Week: 7 - Recreational Drug Use Recreational Drug Use: No Review of Systems - Review of Systems Review Of Systems: See Below Constitutional: Denies: Fever Eyes: Reports: No Symptoms Cardiovascular: Reports: No Symptoms GI/Abdominal: Reports: No Symptoms Musculoskeletal: Reports: Arm Pain (Right side), Hand Pain Skin: Reports: Bruising (Slight bruising is present around the right hand) Neurological: Reports: Other (Perceived weakness of the right side of his body over the past 4 days) ED EXAM, GENERAL - Physical Exam Exam: See Below Exam Limited By: No Limitations General Appearance: Alert, No Apparent Distress Eye Exam: Bilateral Eye: EOMI, PERRL Head: Atraumatic Neck: Supple, Non-Tender Respiratory/Chest: Lungs Clear Extremities: Other (Palpation of the wrist and hand on the right side is tender to palpation, there is no deformity or crepitus) Neurological: Alert, Oriented, Other (I cannot reproduce right-sided weakness with exam, dorsiflexion and plantarflexion of the feet are symmetric.). No: Inattentive Psychiatric: Normal Affect, Normal Mood Course - Vital Signs Last Recorded V/S: Last Vital Signs Temp 98.7 F 02/27/21 15:09 Pulse 83 02/27/21 15:09 Resp 18 02/27/21 15:09 BP 144/77 H 02/27/21 15:09 Pulse Ox 94 L 02/27/21 15:09 - Re-Assessments/Exams Free Text/Narrative Re-Assessment/Exam: 02/27/21 15:[address] without contrast was ordered, as well as a right wrist and right hand x-ray. 02/27/21 16:47 PRESSION: No acute intracranial abnormalities. Periventricular white matter changes consistent chronic microvascular disease. Diffuse volume loss. X-ray of the right wrist and right hand show significant degenerative changes and calcification of the arteries, but no obvious fracture. I encouraged him to wrap the wrist for comfort, use Tylenol for pain and increase activity as tolerated. Departure - Departure Time of Disposition: 16:59 Disposition: Home, Self-Care 01 Clinical Impression: Generalized weakness Contusion of right wrist Qualifiers: Encounter type: initial encounter Qualified Code(s): S60.211A - Contusion of right wrist, initial encounter - Discharge Information Instructions: Contusion, [id number] Referrals: Glen Littlejohn MD [Primary Care Provider] - Forms: ED Department Discharge Care Plan Goals: Use Tylenol as needed for pain, wrap the hand and wrist for comfort and increase activity as tolerated. Return or recheck at any time if you feel you are worsening or develop other concerns. Otherwise continue regular medications. Sepsis Event Note (ED) - Evaluation Sepsis Screening Result: No Definite Risk
--- NOTE | 2021-02-27 16:22 | CRLCT ---
For Patients: As a result of the Century Cures Act, medical imaging exams and procedure reports are released immediately into your electronic medical record. You may view this report before your referring provider. If you have questions, please contact your health care provider. INDICATION: Right-sided weakness x4 days TECHNIQUE: CT head without contrast. COMPARISON: None FINDINGS: CSF spaces: Within normal limits for age. Brain parenchyma: The beck-white differentiation is normal. No sign of mass, hemorrhage, or midline shift. Periventricular white matter changes consistent microvascular disease diffuse loss. Skull base and calvarium: The visualized paranasal sinuses and mastoid air cells demonstrate no acute or significant findings. The visualized orbits are grossly unremarkable. No skull fractures. IMPRESSION: No acute intracranial abnormalities. Periventricular white matter changes consistent chronic microvascular disease. Diffuse volume loss. Please note that all CT scans at this facility use dose modulation, iterative reconstruction, and/or weight-based dosing when appropriate to reduce radiation dose to as low as reasonably achievable. Dictated by Timbo Walters MD @ 02/27/2021 4:21:14 PM (Electronically Signed)
--- NOTE | 2021-02-27 17:56 | CRLCR ---
For Patients: As a result of the Century Cures Act, medical imaging exams and procedure reports are released immediately into your electronic medical record. You may view this report before your referring provider. If you have questions, please contact your health care provider. Indication: Fall with hand and wrist pain Technique: Three views right hand Comparison: None Findings: Bones: Osteopenia. Alignment is normal. No fractures or bone lesions. Joint spaces: Severe degenerative changes at the radiocarpal joint. Soft tissues: Vascular calcifications. Impression: No acute abnormality. 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 Dictated by Kristina Chaudhari MD @ 02/27/2021 5:55:46 PM (Electronically Signed)
--- NOTE | 2021-02-27 17:58 | CRLCR ---
For Patients: As a result of the Century Cures Act, medical imaging exams and procedure reports are released immediately into your electronic medical record. You may view this report before your referring provider. If you have questions, please contact your health care provider. Indication: Fall with wrist pain Technique: Four views right wrist Comparison: None Findings: Bones: Alignment is normal. No fractures or bone lesions. Chronic appearing deformity of the scaphoid and lunate bones with mild widening of the scaphoid lunate distance. Joint spaces: Severe degenerative changes in the radiocarpal joint. Soft tissues: There are vascular calcifications. Impression: No acute abnormality. Severe degenerative changes in the radiocarpal joint. Chronic deformity of the scaphoid and lunate bones. Dictated by Kristina Chaudhari MD @ 02/27/2021 5:58:04 PM (Electronically Signed)
== END 2021-02-27 16:58 | disposition home or self-care (01) ==
LOC: JP.ED 14:37
DX: S60.211A Contusion of right wrist, initial encounter (principal); R53.1 Weakness; I12.9 Hypertensive chronic kidney disease with stage 1 through stage 4 chronic kidney disease, or unspecified chronic kidney disease; N18.9 Chronic kidney disease, unspecified; E03.9 Hypothyroidism, unspecified; I48.91 Unspecified atrial fibrillation; E78.00 Pure hypercholesterolemia, unspecified; Z86.73 Personal history of transient ischemic attack (TIA), and cerebral infarction without residual deficits; Z79.899 Other long term (current) drug therapy; Z79.01 Long term (current) use of anticoagulants; W01.0XXA Fall on same level from slipping, tripping and stumbling without subsequent striking against object, initial encounter
CPT/HCPCS: 70450; 73110-RT; 73130-RT; 99283; 99285-25

== ENCOUNTER 2021-11-14 11:40 | Emergency (ER) | payer MEDICARE, BC ==
[2021-11-14] MEDS ORDERED: Sodium Chloride 0.9% 10 ML Syringe FLUSH PRN (12:38)
[2021-11-14 13:50] LABS: TROPONIN I HIGH SENSITIVITY 19.3 pg/mL (<=60.3)
[2021-11-14] MEDS ORDERED: Furosemide 40 MG Tab PO ONE (14:27)
[2021-11-14 17:09] VITALS: BP 150/69; PULSE 63
== END 2021-11-14 17:34 | disposition home or self-care (01) ==
LOC: JP.ED 11:40
DX: I13.0 Hypertensive heart and chronic kidney disease with heart failure and stage 1 through stage 4 chronic kidney disease, or unspecified chronic kidney disease (principal); N18.32 Chronic kidney disease, stage 3b; I50.33 Acute on chronic diastolic (congestive) heart failure; I48.20 Chronic atrial fibrillation, unspecified; E03.9 Hypothyroidism, unspecified; Z88.1 Allergy status to other antibiotic agents; Z79.899 Other long term (current) drug therapy; Z86.73 Personal history of transient ischemic attack (TIA), and cerebral infarction without residual deficits; Z79.01 Long term (current) use of anticoagulants
CPT/HCPCS: 36415; 71045; 80048; 83880; 84484; 85025; 85610; 93005; 93971; 99285; A9270

== ENCOUNTER 2021-11-25 15:21 | Inpatient (IN) | payer MEDICARE, BC ==
[2021-11-25] MEDS ORDERED: Albuterol/Ipratropium 3.0-0.5 MG/3 ML Neb Soln NEB ONE (15:28)
[2021-11-25 16:04] LABS: ESTIMATED GFR 25 mL/min (>60); TROPONIN I HIGH SENSITIVITY 17.7 pg/mL (<=60.3)
[2021-11-25] MEDS ORDERED: Sodium Chloride 0.9% 10 ML Syringe FLUSH PRN (17:34)
[2021-11-25] MEDS ORDERED: Albuterol 0.083% 2.5 MG/3 ML Neb Soln NEB PRN (17:34)
[2021-11-25] MEDS ORDERED: Levofloxacin/Dextrose 5%-Water 500 MG in Premix Bag 1 BAG IV SCH (17:34)
[2021-11-25] MEDS ORDERED: Ondansetron 4 MG/2 ML SDV IV PRN (17:34)
[2021-11-25] MEDS ORDERED: Levofloxacin/Dextrose 5%-Water 750 MG in Premix Bag 1 BAG IV SCH (18:00)
[2021-11-25] MEDS: methylPREDNISolone Sodium Succinate 40 MG/1 ML SDV IVPUSH SCH (18:21)
[2021-11-25] MEDS: Furosemide 40 MG Tab PO SCH (19:13)
[2021-11-25] MEDS: Potassium Chloride 20 MEQ Tab.ER PO SCH (21:44)
[2021-11-25] MEDS: Albuterol/Ipratropium 3.0-0.5 MG/3 ML Neb Soln NEB SCH (21:45)
[2021-11-26] MEDS: methylPREDNISolone Sodium Succinate 40 MG/1 ML SDV IVPUSH SCH ×3 (01:36→17:45)
[2021-11-26] MEDS: Albuterol/Ipratropium 3.0-0.5 MG/3 ML Neb Soln NEB SCH ×4 (05:41→20:19)
[2021-11-26] MEDS: Levothyroxine 100 MCG Tab PO SCH (08:18)
[2021-11-26] MEDS: Potassium Chloride 20 MEQ Tab.ER PO SCH ×2 (08:19→20:22)
[2021-11-26] MEDS: Furosemide 40 MG Tab PO SCH ×2 (08:19→17:45)
[2021-11-26] MEDS ORDERED: Levothyroxine 100 MCG Tab PO SCH (09:00)
[2021-11-26] MEDS: Metoprolol Succinate 25 MG Tab.ER PO SCH (12:59)
[2021-11-26] MEDS ORDERED: Warfarin 2.5 MG Tab PO SCH (13:00)
[2021-11-26] MEDS: Acetylcysteine 20% 200 MG/ML 4 ML Nebulizer Soln SDV NEB SCH (20:19)
[2021-11-26] MEDS: Tamsulosin 0.4 MG Cap.ER PO SCH (20:22)
[2021-11-26] MEDS ORDERED: Acetylcysteine 20% 200 MG/ML 30 ML Nebulizer Soln SDV NEB SCH (21:00)
[2021-11-27] MEDS: methylPREDNISolone Sodium Succinate 40 MG/1 ML SDV IVPUSH SCH ×2 (01:56→08:30)
[2021-11-27] MEDS: Albuterol/Ipratropium 3.0-0.5 MG/3 ML Neb Soln NEB SCH ×4 (07:24→20:51)
[2021-11-27] MEDS: Acetylcysteine 20% 200 MG/ML 4 ML Nebulizer Soln SDV NEB SCH (07:24)
[2021-11-27] MEDS: Potassium Chloride 20 MEQ Tab.ER PO SCH ×2 (08:29→20:41)
[2021-11-27] MEDS: Furosemide 40 MG Tab PO SCH ×2 (08:29→17:43)
[2021-11-27] MEDS: Levothyroxine 100 MCG Tab PO SCH (08:29)
[2021-11-27] MEDS: Metoprolol Succinate 25 MG Tab.ER PO SCH (08:30)
[2021-11-27] MEDS ORDERED: Warfarin 2.5 MG Tab PO SCH ×2 (13:00)
[2021-11-27] MEDS ORDERED: predniSONE 20 MG Tab PO ONE (14:00)
[2021-11-27] MEDS ORDERED: Levofloxacin 500 MG Tab PO SCH (18:00)
[2021-11-27] MEDS: Tamsulosin 0.4 MG Cap.ER PO SCH (20:42)
[2021-11-28] MEDS: Albuterol/Ipratropium 3.0-0.5 MG/3 ML Neb Soln NEB SCH ×4 (07:05→20:59)
[2021-11-28] MEDS: Potassium Chloride 20 MEQ Tab.ER PO SCH (08:58)
[2021-11-28] MEDS: Levothyroxine 100 MCG Tab PO SCH (08:58)
[2021-11-28] MEDS: Furosemide 40 MG Tab PO SCH ×2 (08:59→09:17)
[2021-11-28] MEDS: Metoprolol Succinate 25 MG Tab.ER PO SCH (09:00)
[2021-11-28] MEDS: predniSONE 20 MG Tab PO SCH (09:11)
[2021-11-28] MEDS: Tamsulosin 0.4 MG Cap.ER PO SCH (21:00)
[2021-11-29] MEDS: Levothyroxine 100 MCG Tab PO SCH (07:25)
[2021-11-29] MEDS: predniSONE 20 MG Tab PO SCH (07:25)
[2021-11-29] MEDS: Albuterol/Ipratropium 3.0-0.5 MG/3 ML Neb Soln NEB SCH ×4 (07:29→20:20)
[2021-11-29] MEDS: Metoprolol Succinate 25 MG Tab.ER PO SCH (08:49)
[2021-11-29] MEDS ORDERED: Bumetanide 1 MG/4 ML MDV IVPUSH ONE (11:00)
[2021-11-29] MEDS: Tamsulosin 0.4 MG Cap.ER PO SCH (21:57)
[2021-11-30] MEDS: Albuterol/Ipratropium 3.0-0.5 MG/3 ML Neb Soln NEB SCH ×4 (07:05→19:59)
[2021-11-30] MEDS: Metoprolol Succinate 25 MG Tab.ER PO SCH (08:12)
[2021-11-30] MEDS: Levothyroxine 100 MCG Tab PO SCH (08:12)
[2021-11-30] MEDS ORDERED: Magnesium Hydroxide 400 MG/5 ML Susp 30 ML Cup PO PRN (08:40)
[2021-11-30] MEDS ORDERED: Bumetanide 1 MG/4 ML MDV IVPUSH ONE ×2 (10:45→20:00)
[2021-11-30] MEDS: Tamsulosin 0.4 MG Cap.ER PO SCH (19:59)
[2021-12-01] MEDS ORDERED: Potassium Chloride 20 MEQ Tab.ER PO ONE ×2 (05:54→17:00)
[2021-12-01] MEDS: Levothyroxine 100 MCG Tab PO SCH (07:09)
[2021-12-01] MEDS: Albuterol/Ipratropium 3.0-0.5 MG/3 ML Neb Soln NEB SCH ×4 (07:27→20:06)
[2021-12-01] MEDS: Metoprolol Succinate 25 MG Tab.ER PO SCH (09:03)
[2021-12-01] MEDS ORDERED: Bumetanide 1 MG/4 ML MDV IVPUSH ONE (10:30)
[2021-12-01] MEDS ORDERED: Levofloxacin 500 MG Tab PO SCH (11:30)
[2021-12-01] MEDS ORDERED: Dimethicone 20%/Zinc Oxide 25% 56 GM Spray Bottle TOP PRN (19:52)
[2021-12-01] MEDS: Bumetanide 2.5 MG/10 ML MDV IVPUSH SCH (20:05)
[2021-12-01] MEDS: Potassium Chloride 20 MEQ Tab.ER PO SCH ×2 (20:06→22:15)
[2021-12-01] MEDS: Tamsulosin 0.4 MG Cap.ER PO SCH (20:06)
[2021-12-02] MEDS ORDERED: Potassium Chloride 20 MEQ Tab.ER PO ONE ×2 (05:47→15:12)
[2021-12-02] MEDS ORDERED: Potassium Chloride 20 MEQ in Premix Bag 1 BAG IV ONE (05:53)
[2021-12-02] MEDS ORDERED: Lidocaine 1% 5 ML VIAL INJECT ONE (05:55)
[2021-12-02] MEDS ORDERED: Potassium Chloride 20 MEQ, Lidocaine 1% 2 ML in Sodium Chloride 0.9% 100 ML IV SCH (06:00)
[2021-12-02] MEDS: Albuterol/Ipratropium 3.0-0.5 MG/3 ML Neb Soln NEB SCH ×4 (06:58→20:52)
[2021-12-02] MEDS: Levothyroxine 100 MCG Tab PO SCH (07:27)
[2021-12-02] MEDS: Bumetanide 2.5 MG/10 ML MDV IVPUSH SCH (09:54)
[2021-12-02] MEDS: Potassium Chloride 20 MEQ Tab.ER PO SCH ×2 (09:54→20:52)
[2021-12-02] MEDS: Metoprolol Succinate 25 MG Tab.ER PO SCH (09:55)
[2021-12-02] MEDS ORDERED: Bumetanide 1 MG/4 ML MDV IVPUSH ONE (11:40)
[2021-12-02] MEDS: Warfarin 2.5 MG Tab PO SCH (12:55)
[2021-12-02] MEDS: Tamsulosin 0.4 MG Cap.ER PO SCH (20:52)
[2021-12-03] MEDS: Albuterol/Ipratropium 3.0-0.5 MG/3 ML Neb Soln NEB SCH ×4 (06:56→20:09)
[2021-12-03] MEDS: Levothyroxine 100 MCG Tab PO SCH (07:26)
[2021-12-03] MEDS: Metoprolol Succinate 25 MG Tab.ER PO SCH (08:43)
[2021-12-03] MEDS: Potassium Chloride 20 MEQ Tab.ER PO SCH ×2 (08:43→20:08)
[2021-12-03] MEDS: Bumetanide 1 MG/4 ML MDV IVPUSH SCH ×2 (10:30→22:13)
[2021-12-03] MEDS: Warfarin 2.5 MG Tab PO SCH (14:02)
[2021-12-03] MEDS: Tamsulosin 0.4 MG Cap.ER PO SCH (20:09)
[2021-12-04] MEDS: Albuterol/Ipratropium 3.0-0.5 MG/3 ML Neb Soln NEB SCH ×4 (07:03→20:39)
[2021-12-04] MEDS: Levothyroxine 100 MCG Tab PO SCH (08:03)
[2021-12-04] MEDS: Potassium Chloride 20 MEQ Tab.ER PO SCH ×2 (08:04→20:34)
[2021-12-04] MEDS: Metoprolol Succinate 25 MG Tab.ER PO SCH (08:04)
[2021-12-04] MEDS ORDERED: Potassium Chloride 20 MEQ Tab.ER PO ONE ×2 (12:45→17:00)
[2021-12-04] MEDS: Warfarin 2.5 MG Tab PO SCH (13:44)
[2021-12-04] MEDS: Bumetanide 1 MG Tab PO SCH (14:05)
[2021-12-04] MEDS: Acetaminophen 325 MG Tab PO PRN (14:27)
[2021-12-04] MEDS: Tamsulosin 0.4 MG Cap.ER PO SCH (20:34)
[2021-12-05] MEDS: Acetaminophen 325 MG Tab PO PRN (04:37)
[2021-12-05] MEDS: Albuterol/Ipratropium 3.0-0.5 MG/3 ML Neb Soln NEB SCH ×2 (06:57→10:47)
[2021-12-05 07:16] VITALS: BP 135/57; PULSE 62
[2021-12-05] MEDS: Levothyroxine 100 MCG Tab PO SCH (07:20)
[2021-12-05] MEDS: Bumetanide 1 MG Tab PO SCH (08:31)
[2021-12-05] MEDS: Metoprolol Succinate 25 MG Tab.ER PO SCH (08:31)
[2021-12-05] MEDS: Potassium Chloride 20 MEQ Tab.ER PO SCH (08:31)
== END 2021-12-05 11:32 | disposition hospice, home (50) | DRG 193 ==
LOC: JP.ED 15:21 → JP.ICU 16:22 → JP.MS 17:16
PROVIDERS: ADMIT Hospitalist; ATTEND Hospitalist
DX: J18.9 Pneumonia, unspecified organism (principal); I50.33 Acute on chronic diastolic (congestive) heart failure; J96.01 Acute respiratory failure with hypoxia; N18.4 Chronic kidney disease, stage 4 (severe); I48.91 Unspecified atrial fibrillation; I48.20 Chronic atrial fibrillation, unspecified; I13.0 Hypertensive heart and chronic kidney disease with heart failure and stage 1 through stage 4 chronic kidney disease, or unspecified chronic kidney disease; Z20.822 Contact with and (suspected) exposure to COVID-19; Z66 Do not resuscitate; Z51.5 Encounter for palliative care; D47.2 Monoclonal gammopathy; N18.32 Chronic kidney disease, stage 3b; Z79.899 Other long term (current) drug therapy; Z88.1 Allergy status to other antibiotic agents; N48.89 Other specified disorders of penis; E78.00 Pure hypercholesterolemia, unspecified; G30.9 Alzheimer's disease, unspecified; F02.80 Dementia in other diseases classified elsewhere, unspecified severity, without behavioral disturbance, psychotic disturbance, mood disturbance, and anxiety; E03.9 Hypothyroidism, unspecified; E87.6 Hypokalemia; R33.9 Retention of urine, unspecified; Z79.01 Long term (current) use of anticoagulants; Z79.890 Hormone replacement therapy; Z86.73 Personal history of transient ischemic attack (TIA), and cerebral infarction without residual deficits
CPT/HCPCS: 36415; 36600; 51702; 71045; 80048; 80053; 82803; 83735; 84132; 84145; 84484; 85025; 85027; 85610; 87040; 92610-GN; 94640; 97110-GP; 97162-GP; 97530-GP; 99285; A9270-GY; J1956; J2405; J2920; J3480; J3490; J7512; J7620; U0002